=== PATIENT | female | born 1960 | race Caucasian/White ===

== ENCOUNTER 2020-04-13 08:49 | Outpatient (REF) | payer MEDICAID, SELFPAY ==
[2020-04-13 11:33] LABS: Alanine Aminotransferase 28 U/L (0-31); Albumin Level 4.3 g/dL (3.5-5.0); Alkaline Phosphatase 115 U/L (39-117); Anion Gap 12 (12-20); Aspartate Amino Transferase 20 U/L (5-31); Bilirubin Total 0.3 mg/dL (0.0-1.0); Blood Urea Nitrogen 11 mg/dL (9-16); Calcium 9.4 mg/dL (8.4-10.2); Carbon Dioxide 28 mmol/L (22-29); Chloride 107 mmol/L (96-108); Estimated Glomerular Filt Rate > 60; Glucose Fasting 107 mg/dL (60-99); Potassium 4.7 mmol/l (3.3-5.1); Sodium 142 mmol/L (135-145); Total Protein 6.8 g/dL (6.5-8.0)
[2020-04-14 17:57] LABS: Immunoglobulin A 90 mg/dL (47-310)
[2020-04-15 13:11] LABS: Transglutaminase Ab IgG 1 U/mL; Transglutaminase IgA 1 U/mL
[2020-04-15 16:37] LABS: Calcium (PTHI) 9.3 mg/dL (8.6-10.4); PTHI 72 pg/mL (14-64)
[2020-04-17 18:51] LABS: Endomysial IgA Antibody Negative (Negative)
== END 2020-04-13 08:50 | disposition home or self-care (01) ==
LOC: HO.10HDL 08:49
PROVIDERS: Visit Provider Internal Medicine Endocrinology, Diabetes & Metabolism
DX: E21.3 Hyperparathyroidism, unspecified (principal)
CPT/HCPCS: 36415; 80053; 81382; 82306; 82784; 83516; 83970; 86255; 86256

== ENCOUNTER 2020-04-14 11:46 | Outpatient (REF) | payer MEDICAID, SELFPAY ==
[2020-04-14 12:50] LABS: Total Volume 24 Hour Urine 2775 mL
[2020-04-14 12:59] LABS: Creatinine, 24Hr Urine 1.1 G/Day (1.0-2.0); Creatinine, mg/dL 38.02
[2020-04-16 18:01] LABS: Calcium, 24 Hr Urine 114 mg/24 h; Calcium/Creatinine Ratio 105 mg/g creat (30-275); Creatinine 24Hr Urine 1.08 g/24 h (0.50-2.15)
== END 2020-04-14 11:47 | disposition home or self-care (01) ==
LOC: HO.LNP 11:46
PROVIDERS: Visit Provider Internal Medicine Endocrinology, Diabetes & Metabolism
DX: E21.3 Hyperparathyroidism, unspecified (principal)
CPT/HCPCS: 82340; 82570

== ENCOUNTER 2020-04-28 08:58 | Outpatient (REF) | payer MEDICAID, SELFPAY ==
[2020-04-28 10:15] LABS: Alanine Aminotransferase 28 U/L (0-31); Albumin Level 4.3 g/dL (3.5-5.0); Alkaline Phosphatase 108 U/L (39-117); Anion Gap 12 (12-20); Aspartate Amino Transferase 23 U/L (5-31); Bilirubin Total 0.7 mg/dL (0.0-1.0); Blood Urea Nitrogen 13 mg/dL (9-16); Calcium 8.7 mg/dL (8.4-10.2); Carbon Dioxide 29 mmol/L (22-29); Chloride 105 mmol/L (96-108); Estimated Glomerular Filt Rate > 60; Glucose Fasting 106 mg/dL (60-99); Potassium 4.4 mmol/l (3.3-5.1); Sodium 142 mmol/L (135-145); Total Protein 6.8 g/dL (6.5-8.0)
[2020-04-28 10:22] LABS: Vitamin D 25-OH Total 27.2 ng/mL (>30)
[2020-04-29 17:52] LABS: Calcium (PTHI) 9.5 mg/dL (8.6-10.4); PTHI 78 pg/mL (14-64)
[2020-05-02 00:52] LABS: VITAMIN D (1,25 OH) D3 70 pg/mL; Vit D (1,25-Dihydroxy) Total 70 pg/mL (18-72); Vitamin D (1,25 OH) D2 <8 pg/mL
[2020-05-05 14:17] LABS: N-Telopeptide 41 (see note); NTXCreaRU 138 mg/dL (20-275)
== END 2020-04-28 08:59 | disposition home or self-care (01) ==
LOC: HO.LAB 08:58
PROVIDERS: PCP Internal Medicine; Visit Provider Internal Medicine Endocrinology, Diabetes & Metabolism
DX: E83.52 Hypercalcemia (principal)
CPT/HCPCS: 80053; 82306; 82523; 82652; 83970

== ENCOUNTER → 2020-05-04 08:59 | Outpatient (BNVA) | payer MEDICAID, SELFPAY | PROVIDERS: PCP Internal Medicine; Referring Provider Internal Medicine; Visit Provider Internal Medicine Endocrinology, Diabetes & Metabolism | DX: Z13.89 Encounter for screening for other disorder (principal) | CPT/HCPCS: 99212 ==

== ENCOUNTER → 2020-06-16 10:36 | Outpatient (BNVA) | payer MEDICAID, SELFPAY | PROVIDERS: PCP Internal Medicine; Referring Provider Internal Medicine; Visit Provider Student in an Organized Health Care Education/Training Program | DX: Z76.89 Persons encountering health services in other specified circumstances (principal) ==

== ENCOUNTER 2020-08-04 12:41 | Outpatient (REF) | payer MEDICAID, SELFPAY ==
[2020-08-04 14:38] LABS: Alanine Aminotransferase 47 U/L (0-31); Albumin Level 4.3 g/dL (3.5-5.0); Alkaline Phosphatase 231 U/L (39-117); Anion Gap 13 (12-20); Aspartate Amino Transferase 32 U/L (5-31); Bilirubin Total 0.4 mg/dL (0.0-1.0); Blood Urea Nitrogen 14 mg/dL (9-16); Calcium 9.4 mg/dL (8.4-10.2); Carbon Dioxide 29 mmol/L (22-29); Chloride 106 mmol/L (96-108); Estimated Glomerular Filt Rate > 60; Glucose Fasting 116 mg/dL (60-99); Potassium 4.5 mmol/L (3.3-5.1); Sodium 143 mmol/L (135-145); Total Protein 7.3 g/dL (6.5-8.0)
[2020-08-04 15:02] LABS: Vitamin D 25-OH Total 43.5 ng/mL (>30)
[2020-08-05 10:42] LABS: Calcium (PTHI) 9.6 mg/dL (8.6-10.4); PTHI 62 pg/mL (14-64)
== END 2020-08-04 12:42 | disposition home or self-care (01) ==
LOC: HO.LAB 12:41
PROVIDERS: PCP Internal Medicine; Referring Provider Internal Medicine; Visit Provider Internal Medicine Endocrinology, Diabetes & Metabolism
DX: E21.3 Hyperparathyroidism, unspecified (principal); M85.80 Other specified disorders of bone density and structure, unspecified site; Z79.899 Other long term (current) drug therapy
CPT/HCPCS: 36415; 80053; 82306; 83970; 99212

== ENCOUNTER 2020-09-10 07:57 | Outpatient (REF) | payer MEDICAID, SELFPAY ==
[2020-09-10 11:07] LABS: Erythrocyte Sedimentation Rate 48 MM/HR (0-20)
[2020-09-10 11:31] LABS: C Reactive Protein 0.95 mg/dL (< or = 0.50)
== END 2020-09-10 07:58 | disposition home or self-care (01) ==
LOC: HO.10HDL 07:57
PROVIDERS: Visit Provider Student in an Organized Health Care Education/Training Program
DX: M35.3 Polymyalgia rheumatica (principal)
CPT/HCPCS: 36415; 85652; 86140

== ENCOUNTER 2020-09-14 08:41 | Outpatient (REF) | payer MEDICAID, SELFPAY ==
[2020-09-14 13:39] LABS: MANUAL DIFF FLAG NO
[2020-09-14 13:55] LABS: Basophils Percent Auto 0.3 % (0-2); Eosinophils Absolute Auto 0.3 X10*3/uL (0.0-0.4); Eosinophils Percent Auto 3.8 % (0-4); Hematocrit 42.3 % (37-47); Hemoglobin 13.3 g/dl (12.0-16.0); Imm Gran Abs Auto 0.02 X10*3/uL (0.00-0.03); Imm Gran Pct Auto 0.3 % (0.0-0.4); Lymphocytes Absolute Auto 1.5 X10*3/uL (1.2-4.9); Lymphocytes Percent Auto 19.9 % (20-40); Mean Corpuscular HGB Conc 31.4 g/dl (31.0-35.0); Mean Corpuscular Hemoglobin 28.4 pg (27.0-33.0); Mean Corpuscular Volume 90.2 fL (80-98); Mean Platelet Volume 12.4 fL (9.4-12.3); Monocytes Absolute Auto 0.6 X10*3/uL (0.1-1.2); Monocytes Percent Auto 7.2 % (2-11); Neutrophils Absolute Auto 5.3 X10*3/uL (2.0-8.3); Neutrophils Percent Auto 68.5 % (45-73); Platelet Count 263 X10*3/uL (160-400); Red Blood Count 4.69 X10*6/uL (4.20-5.50); White Blood Count 7.7 X10*3/uL (4.8-10.8)
[2020-09-14 14:25] LABS: Alanine Aminotransferase 59 U/L (0-31); Albumin Level 4.4 g/dL (3.5-5.0); Alkaline Phosphatase 280 U/L (39-117); Anion Gap 16 (12-20); Aspartate Amino Transferase 47 U/L (5-31); Bilirubin Direct 0.3 mg/dL (0.0-0.5); Bilirubin Total 0.6 mg/dL (0.0-1.0); Blood Urea Nitrogen 16 mg/dL (9-16); Calcium 9.4 mg/dL (8.4-10.2); Carbon Dioxide 27 mmol/L (22-29); Chloride 104 mmol/L (96-108); Estimated Glomerular Filt Rate > 60; Glucose Random 79 mg/dL (60-115); Potassium 4.3 mmol/L (3.3-5.1); Sodium 143 mmol/L (135-145); Total Protein 7.7 g/dL (6.5-8.0)
[2020-09-14 14:31] LABS: Gamma Glutamyl Transpeptidase 353 U/L (7-33)
[2020-09-16 14:16] LABS: IgA 102 mg/dL (47-310); IgG 795 mg/dL (600-1640); IgM 389 mg/dL (50-300)
[2020-09-17 22:36] LABS: Alk.Phos Iso. Macrohepatic 19 % (<=0); Alk.Phos Isoenzymes Bone 16 % (28-66); Alk.Phos Isoenzymes Intest 0 % (1-24); Alk.Phos Isoenzymes Liver 65 % (25-69); Alk.Phos Isoenzymes Placental 0 % (<=0); Alk.Phos Isoenzymes Total 254 U/L (37-153)
== END 2020-09-14 08:42 | disposition home or self-care (01) ==
LOC: HO.10HDL 08:41
PROVIDERS: Absent Provider Internal Medicine Medical Oncology; Visit Provider Internal Medicine Endocrinology, Diabetes & Metabolism
DX: D80.1 Nonfamilial hypogammaglobulinemia (principal); R74.8 Abnormal levels of other serum enzymes
CPT/HCPCS: 36415; 80053; 80076; 82248; 82784; 82977; 84080; 85025; 86334

== ENCOUNTER 2020-10-14 08:49 | Outpatient (REF) | payer MEDICAID, SELFPAY ==
[2020-10-14 10:43] LABS: C Reactive Protein 1.64 mg/dL (< or = 0.50)
[2020-10-14 11:19] LABS: Erythrocyte Sedimentation Rate 39 MM/HR (0-20)
== END 2020-10-14 08:50 | disposition home or self-care (01) ==
LOC: HO.10HDL 08:49
PROVIDERS: Visit Provider Student in an Organized Health Care Education/Training Program
DX: M35.3 Polymyalgia rheumatica (principal)
CPT/HCPCS: 36415; 85652; 86140

== ENCOUNTER → 2020-10-16 14:49 | Outpatient (BNVA) | payer MEDICAID, SELFPAY | PROVIDERS: PCP Internal Medicine; Visit Provider Student in an Organized Health Care Education/Training Program | DX: M35.3 Polymyalgia rheumatica (principal); R79.82 Elevated C-reactive protein (CRP) | CPT/HCPCS: 99212 ==

== ENCOUNTER 2020-11-10 08:27 | Outpatient (REF) | payer MEDICAID, SELFPAY ==
[2020-11-10 09:42] LABS: MANUAL DIFF FLAG NO
[2020-11-10 09:49] LABS: Basophils Percent Auto 0.4 % (0-2); Eosinophils Absolute Auto 0.2 X10*3/uL (0.0-0.4); Eosinophils Percent Auto 3.3 % (0-4); Hematocrit 40.3 % (37-47); Imm Gran Abs Auto 0.01 X10*3/uL (0.00-0.03); Imm Gran Pct Auto 0.2 % (0.0-0.4); Lymphocytes Absolute Auto 1.4 X10*3/uL (1.2-4.9); Lymphocytes Percent Auto 28.8 % (20-40); Mean Corpuscular HGB Conc 32.3 g/dl (31.0-35.0); Mean Corpuscular Hemoglobin 29.1 pg (27.0-33.0); Mean Corpuscular Volume 90.2 fL (80-98); Mean Platelet Volume 10.3 fL (9.4-12.3); Monocytes Absolute Auto 0.5 X10*3/uL (0.1-1.2); Monocytes Percent Auto 9.6 % (2-11); Neutrophils Absolute Auto 2.8 X10*3/uL (2.0-8.3); Neutrophils Percent Auto 57.7 % (45-73); Platelet Count 195 X10*3/uL (160-400); Red Blood Count 4.47 X10*6/uL (4.20-5.50); White Blood Count 4.8 X10*3/uL (4.8-10.8)
[2020-11-10 09:55] LABS: Prothrombin Time 12.2 SEC (10.8-13.0)
[2020-11-10 10:19] LABS: Alanine Aminotransferase 49 U/L (0-31); Albumin Level 4.6 g/dL (3.5-5.0); Alkaline Phosphatase 194 U/L (39-117); Anion Gap 14 (12-20); Aspartate Amino Transferase 39 U/L (5-31); Bilirubin Total 0.6 mg/dL (0.0-1.0); Blood Urea Nitrogen 12 mg/dL (9-16); C Reactive Protein 2.28 mg/dL (< or = 0.50); Calcium 9.8 mg/dL (8.4-10.2); Carbon Dioxide 25 mmol/L (22-29); Chloride 106 mmol/L (96-108); Estimated Glomerular Filt Rate > 60; Glucose Random 119 mg/dL (60-115); Iron 79 mcg/dL (30-160); Percent Iron Saturation 19 % (15-50); Potassium 3.8 mmol/L (3.3-5.1); Sodium 141 mmol/L (135-145); Total Iron Binding Capacity 421 mcg/dL (228-428); Total Protein 7.5 g/dL (6.5-8.0); Unsaturated Iron Binding 342 ug/dL
[2020-11-10 10:39] LABS: HBS Num1 8.65 mIU/mL (0-7.99); Hepatitis B Core Antibody Nonreactive (Nonreactive)
[2020-11-10 10:42] LABS: Ferritin 101 ng/mL (10-250)
[2020-11-10 10:43] LABS: Erythrocyte Sedimentation Rate 38 MM/HR (0-20)
[2020-11-10 10:44] LABS: Hepatitis A Antibody IgM 0.72 Index (0-0.79); Hepatitis B Surface Antigen Negative (Negative); ~HepC Num1 0.07 S/CO (0.00-0.79); ~Hepatitis A Antibody IgM Nonreactive (Nonreactive); ~Hepatitis C Antibody Nonreactive (Nonreactive)
[2020-11-10 11:46] LABS: HBsAGNum1 0.15 S/CO (0.00-0.99)
[2020-11-10 13:44] LABS: HBS Num2 8.05 mIU/mL (0-7.99); HBS Num3 8.09 mIU/mL (0-7.99); ~Hepatitis B Surface Antibody GRAYZONE (Nonreactive)
[2020-11-11 11:42] LABS: Alpha 1 Anti-trypsin 203 mg/dL (83-199)
[2020-11-11 23:27] LABS: Immunoglobulin G Subclass 1 464 mg/dL (382-929); Immunoglobulin G Subclass 2 231 mg/dL (241-700); Immunoglobulin G Subclass 3 90 mg/dL (22-178); Immunoglobulin G Subclass 4 14.4 mg/dL (4-86); Immunoglobulin G Total 743 mg/dL (600-1640)
[2020-11-12 13:32] LABS: Anti Nuclear Antibody Screen NEGATIVE (NEGATIVE)
[2020-11-13 10:57] LABS: Soluble Liver Ag Autoantibody <20.1 U (0.0-20.0)
[2020-11-13 11:21] LABS: Myeloperoxidase Antibody <1.0 AI; Proteinase 3 PR3 Antibodies <1.0 AI
[2020-11-13 23:06] LABS: Smooth Muscle Antibody <20 U (<20)
[2020-11-16 15:11] LABS: Mitochondrial Antibodies POSITIVE (NEGATIVE)
[2020-11-17 23:26] LABS: Histamine Plasma <1.5 ng/mL (< OR = 1.8)
== END 2020-11-10 08:28 | disposition home or self-care (01) ==
LOC: HO.LAB 08:27
PROVIDERS: Student in an Organized Health Care Education/Training Program; PCP Internal Medicine; Visit Provider Internal Medicine Gastroenterology
DX: M35.3 Polymyalgia rheumatica (principal); K52.839 Microscopic colitis, unspecified; K75.81 Nonalcoholic steatohepatitis (NASH); R74.8 Abnormal levels of other serum enzymes; R79.82 Elevated C-reactive protein (CRP); R68.81 Early satiety
CPT/HCPCS: 36415; 80053; 82085; 82103; 82728; 82784; 83088; 83520; 83540; 85025; 85610; 85652; 86021; 86038; 86039; 86140; 86255; 86256; 86704; 86706; 86709; 86803; 87340; 99202

== ENCOUNTER 2020-11-26 09:27 | Outpatient (REF) | payer MEDICAID, SELFPAY ==
--- NOTE | ~2020-11-26 | US_ITS ---
EXAMINATION: US COMPLETE ABDOMEN WITH LIVER ELASTOGRAPHY CLINICAL INFORMATION: Abnormal serum levels. COMPARISON: None. TECHNIQUE: Real-time imaging of the abdominal viscera. Noninvasive ultrasound liver fibrosis assessment is performed using [employer] ElastPQ point quantification shear wave elastography (pSWE) with a C5-2 MHz transducer. Multiple elastography samples are obtained. FINDINGS: LIVER: Homogeneous echotexture without focal abnormality. The right lobe measures 15.6 cm in length. The left lobe measures 12.2 cm in length. Portal flow is hepatopedal. Shear wave liver elastography median stiffness is 1.39 m/s (reference: normal median stiffness is 1.3 m/s or less). IQR/median stiffness to assess sampling precision is 0.2 (reference: good quality data set is IQR/median stiffness of 0.15 or less). PANCREAS: Visualized portions unremarkable. ABDOMINAL AORTA: Visualized portions unremarkable. INFERIOR VENA CAVA: Visualized portions are normal. GALLBLADDER: Unremarkable. COMMON BILE DUCT: Normal in caliber measuring 0.4 cm in diameter. RIGHT KIDNEY: 10.3 cm. Unremarkable. LEFT KIDNEY: 10.6 cm. A cortically based echogenic focus in the lower pole measures 0.6 cm. SPLEEN: 11.0 cm. Unremarkable. FREE FLUID: None. US/US abdomen comp w elastography IMPRESSION: 1. Cortically based echogenic focus in the lower pole the left kidney is nonspecific, but could represent a small angiomyolipoma. No other significant intra-abdominal abnormality. 2. Liver elastography: Borderline normal/compensated advanced chronic liver disease rule out. REFERENCE: Society of Radiologists in Ultrasound Liver Stiffness Thresholds (2020): LIVER STIFFNESS THRESHOLDS: *Liver Stiffness equal or less than 1.3 m/s: High probability of being normal. *Liver Stiffness less than 1.7 m/s: In the absence of other known clinical signs, rules out compensated advanced chronic liver disease. *Liver Stiffness 1.7-2.1 m/s: Suggestive of compensated advanced chronic liver disease but need further test for confirmation. *Liver Stiffness over 2.1 m/s: Rules in compensated advanced chronic liver disease. *Liver Stiffness over 2.4 m/s: Suggestive of clinically significant portal hypertension. QUALITY OF DATA SET: *IQR/Median value equal or less than 0.15 implies a quality data set. *IQR/Median value over 0.15 implies a poor quality data set. SIGNIFICANT CHANGE FROM PRIOR EXAM: Significant change if liver stiffness measurement is 10% or greater from prior exam. OTHER CONSIDERATIONS: The stage of liver fibrosis may be overestimated in the setting of acute hepatitis, liver inflammation, elevated liver function tests, hepatic vascular congestion, obstructive cholestasis, non-fasting state, and infiltrative diseases such as amyloidosis and lymphoma. In some patients with NAFLD, the liver stiffness thresholds for compensated advanced chronic liver disease may be lower. In causes other than viral hepatitis and NAFLD, liver stiffness thresholds are not well established.
== END 2020-11-26 09:28 | disposition home or self-care (01) ==
LOC: HO.US 09:27
PROVIDERS: Visit Provider Internal Medicine Gastroenterology
DX: R74.8 Abnormal levels of other serum enzymes (principal); R79.82 Elevated C-reactive protein (CRP); R68.81 Early satiety
CPT/HCPCS: 76705; 76981

== ENCOUNTER → 2020-12-03 13:26 | Outpatient (BNVA) | payer MEDICAID, SELFPAY | PROVIDERS: PCP Internal Medicine; Visit Provider Internal Medicine Endocrinology, Diabetes & Metabolism ==

== ENCOUNTER 2020-12-17 11:56 | Day surgery (SDC) | payer MEDICAID, SELFPAY ==
[2020-12-09 19:21] VITALS: BMI 31.1
--- NOTE | 2020-12-16 09:42 | HO.ANESPROP2 ---
Documented by User: Brea Barthney 12/16/20 09:46 HPI - Anesthesia Eval Consult details Narrative: 60yo F for Upper Endoscopy PMR - no prednisone since 2019 PMFSH Active Problems Active Problems: All Active Problems (Updated 12/09/20 @ 19:23 by Kait Flowers RN) Hypogammaglobulinemia (Acute) Elevated C-reactive protein (CRP) (Acute) Early satiety (Acute) Elevated alkaline phosphatase level (Acute) Dyslipidemia (Acute) Asthma (Acute) Polymyalgia rheumatica (Acute) Depression (Acute) Osteopenia (Acute) Hyperparathyroidism (Acute) Past Medical History Medical History Arthritis Asthma Back pain COVID-19 vaccine administered Depression Dyslipidemia Elevated alkaline phosphatase level GERD (gastroesophageal reflux disease) Hyperparathyroidism Osteopenia Polymyalgia rheumatica Family History Family History Father Diabetes Mother No problems noted. Surgical History Surgical History History of partial hysterectomy Hx of colonoscopy Hx of esophagogastroduodenoscopy Hx of hemorrhoidectomy Hx of melanoma excision Social History Social History Household Members: Spouse Alcohol intake: never Patient Tobacco Use Status: Never used Tobacco Use of substances other than those prescribed or required for medical reasons: No Are you DNR?: No Advance Directives: No Advance Directives Information Provided: No Advance Directives on File: No Recently lost weight without trying: No Meds Allergies Allergy/AdvReac Type Severity Reaction Status Date / Time penicillin G [PENICILLIN G] Allergy Intermediate UNKNOWN Verified 12/17/20 12:37 Home Medications Medication Instructions Recorded Confirmed Last Taken Type albuterol sulfate 90 mcg/actuation 1 inh INHALATION QID 05/04/20 12/09/20 12/17/20 11:00 History aerosol inhaler bupropion HCl 150 mg 24 hr tablet, 150 mg PO QAM 05/04/20 12/09/20 Unknown History extended release cetirizine 10 mg tablet 10 mg PO DAILY 05/04/20 12/09/20 Unknown History estradiol 1 vag ring VAGINAL [id number] 05/04/20 12/09/20 Unknown History fluticasone propionate 50 1 spray INTRANASAL DAILY 05/04/20 12/09/20 12/17/20 11:00 History mcg/actuation nasal spray,suspension methenamine hippurate 1 gram tablet 1 g PO BID 05/04/20 12/09/20 Unknown History pantoprazole 20 mg tablet,delayed 20 mg PO DAILY 06/16/20 12/09/20 Unknown History release celecoxib 50 mg capsule 100 mg PO DAILY cap 10/16/20 12/09/20 Unknown History simvastatin 10 mg tablet 20 mg PO DAILY tab 10/16/20 12/09/20 Unknown History Exam Exam Date and Time: December 16, 2020 0942 Height,Weight and Vital Signs: Height 5 ft 2 in Weight 77.111 kg Pertinent Lab Results Pertinent Lab Results: Laboratory Tests 11/10/20 11/10/20 09:31 09:31 WBC 4.8 Hgb 13.0 Hct 40.3 Plt Count 195 D Sodium 141 Potassium 3.8 Chloride 106 Carbon Dioxide 25 BUN 12 Creatinine 0.74 Assessment and Plan Assessment Anesthesia Assessment: Chart Reviewed Documented by User: Christal Weems 12/17/20 13:47 PMFSH Past Medical History Medical History Arthritis Asthma Back pain COVID-19 vaccine administered Depression Dyslipidemia Elevated alkaline phosphatase level GERD (gastroesophageal reflux disease) Hyperparathyroidism Osteopenia Polymyalgia rheumatica Family History Family History Father Diabetes Mother No problems noted. Family history of problems with anesthesia: No Surgical History Surgical History History of partial hysterectomy Hx of colonoscopy Hx of esophagogastroduodenoscopy Hx of hemorrhoidectomy Hx of melanoma excision History of Problems with Anesthesia: No Social History Social History Household Members: Spouse Alcohol intake: never Patient Tobacco Use Status: Never used Tobacco Use of substances other than those prescribed or required for medical reasons: No Are you DNR?: No Advance Directives: No Advance Directives Information Provided: No Advance Directives on File: No Recently lost weight without trying: No Meds Allergies Allergy/AdvReac Type Severity Reaction Status Date / Time penicillin G [PENICILLIN G] Allergy Intermediate UNKNOWN Verified 12/17/20 12:37 Home Medications Medication Instructions Recorded Confirmed Last Taken Type albuterol sulfate 90 mcg/actuation 1 inh INHALATION QID 05/04/20 12/09/20 12/17/20 11:00 History aerosol inhaler bupropion HCl 150 mg 24 hr tablet, 150 mg PO QAM 05/04/20 12/09/20 Unknown History extended release cetirizine 10 mg tablet 10 mg PO DAILY 05/04/20 12/09/20 Unknown History estradiol 1 vag ring VAGINAL [id number] 05/04/20 12/09/20 Unknown History fluticasone propionate 50 1 spray INTRANASAL DAILY 05/04/20 12/09/20 12/17/20 11:00 History mcg/actuation nasal spray,suspension methenamine hippurate 1 gram tablet 1 g PO BID 05/04/20 12/09/20 Unknown History pantoprazole 20 mg tablet,delayed 20 mg PO DAILY 06/16/20 12/09/20 Unknown History release celecoxib 50 mg capsule 100 mg PO DAILY cap 10/16/20 12/09/20 Unknown History simvastatin 10 mg tablet 20 mg PO DAILY tab 10/16/20 12/09/20 Unknown History Exam Height,Weight and Vital Signs: Vital Signs Temp Pulse Resp BP Pulse Ox 12/17/20 12:38 98.1 F 58 15 131/71 97 Airway Mallampati Class: II TM Dist: >3cm Neck ROM: Full Heart: RRR Lungs: CTAB Assessment and Plan Assessment Anesthesia Assessment: Anesthesia Plan Discussed and Chart Reviewed Final Anesthetic Review NPO: Yes ASA Class: II Final Preanesthetic Review: No Changes in Pt Med Stat, Meds/Allgs Chart Reviewed and Consent Obtained/Reviewed Patient Risk: Low Procedure Risk: Low Assessment/Block/Sedation in SS: Assess/Block/Sedation-SS Anesthetic Plan Anesthetic Plan: MAC: Disposition: Standard PACU
--- NOTE | 2020-12-17 12:32 | MHC.SHP ---
Pre-Procedural Eval Section A Date of Service: 12/17/20 Section B Chief Complaint: early satiety Relevant Family History (Specify if Yes): No Relevant Social History: None Present Medications: see Short Stay Collaborative assessment Medical History: Significant History (Arthritis Asthma Back pain COVID-19 vaccine administered Depression Dyslipidemia Elevated alkaline phosphatase level GERD (gastroesophageal reflux disease) Hyperparathyroidism Osteopenia Polymyalgia rheumatica) History of Previous Operations: Relevant previous surgery/procedure and date(s) (History of partial hysterectomy Hx of colonoscopy Hx of esophagogastroduodenoscopy Hx of hemorrhoidectomy Hx of melanoma excision) Allergies: Allergies Allergy/AdvReac Type Severity Reaction Status Date / Time penicillin G [PENICILLIN G] Allergy Intermediate UNKNOWN Verified 12/09/20 19:20 Review of Systems Sugical H&P ROS: Negative: Constitution, Cardiovascular, Respiratory, Neurological, Psychiatric, Hem-Onc, Allergic/Immunologic, Gastrointestinal, Genitourinary, Musculoskeletal, Integumentary, Endocrine and Eyes/Ears/Nose/Throat Exam Surgical H&P Exam: Normal: HEENT, Normal: Heart, Normal: Lungs, Normal: Extremities, Normal: Abdomen, Normal: Skin and Normal: Neurological Plan Diagnosis/Plan: Unchanged I have reviewed the history and physical and performed a pertinent physical examination on my patient. No changes have occurred unless specified.
[2020-12-17 12:38] VITALS: BP 131/71; PULSE 58; RESP 15; TEMP 36.7; O2SAT 97
[2020-12-17] MEDS: Lactated Ringers 1,000 ML 100 ML IVCONT (13:00)
--- NOTE | 2020-12-17 13:09 | PM.OP ---
Brief Operative Note Date of Service: 12/17/20 Pre-op diagnosis: satiety, PBC Post-op diagnosis: same Procedure: see op note Surgeon: Geraldo Fung MD Anesthesia: MAC Was an Tufting Supervisor used for this Procedure?: No Estimated blood loss (mL): 0 Condition: stable Disposition: PACU
--- NOTE | 2020-12-17 13:10 | W.PM.OPN ---
Operative Note Operative Note Date of Service: 12/17/20 Narrative: Procedure Description: EGD FLEXIBLE TRANSORAL UPPER GASTROINTESTINAL ENDOSCOPY UPPER ENDOSCOPY Consent: Indications for the procedure and potential complications of bleeding, perforation, reaction to medications and missed diagnosis were discussed with the patient and informed consent was obtained. Instrument: Olympus GIF H 190 J mid size upper endoscope Monitoring: Vital signs and clinical assessment, continuous EKG monitoring, Pulse oximetry, Carbon Dioxide monitoring and blood pressure monitoring were done throughout the procedure. Procedure: The patient was placed in the left lateral decubitis position and pre-procedure medications were administered and a bite block was placed. The endoscope was inserted into the mouth and advanced under direct vision to the third part of duodenum. A careful inspection was made as the upper endoscope was withdrawn including a retroflexed examination of the proximal stomach; Findings and interventions are described below. Findings: Larynx:normal Esophagus: GE junction at 38 cm, diaphragm hiatus at 38 cm, irregular Z line with suspected short segment barretts, bx taken Stomach: Patchy gastric erythema. Biopsies were obtained. Grade 2 flap valve on retroflexed examination of the cardia. 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
[2020-12-17 13:49] VITALS: BP 107/56; PULSE 53; RESP 16; TEMP 36.4; O2SAT 96
[2020-12-17 13:54] VITALS: BP 109/64; PULSE 57; RESP 15; O2SAT 94
[2020-12-17 14:04] VITALS: BP 114/63; PULSE 53; RESP 13; O2SAT 96
[2020-12-17 14:24] VITALS: BP 129/64; PULSE 53; RESP 13; TEMP 36.3; O2SAT 97
== END 2020-12-17 15:16 | disposition home or self-care (01) ==
PROVIDERS: PCP Internal Medicine; Visit Provider Internal Medicine Gastroenterology
PROC: 0DJ08ZZ Inspection of Upper Intestinal Tract, Via Natural or Artificial Opening Endoscopic (ICD-10-PCS; CPT 43235; principal; 2020-12-17 13:30)
DX: R68.81 Early satiety (principal); R74.8 Abnormal levels of other serum enzymes; R79.82 Elevated C-reactive protein (CRP); K29.50 Unspecified chronic gastritis without bleeding; K21.9 Gastro-esophageal reflux disease without esophagitis; K44.9 Diaphragmatic hernia without obstruction or gangrene; M35.3 Polymyalgia rheumatica; J45.909 Unspecified asthma, uncomplicated; Z79.899 Other long term (current) drug therapy; Z79.51 Long term (current) use of inhaled steroids; Z88.0 Allergy status to penicillin; Z85.820 Personal history of malignant melanoma of skin
CPT/HCPCS: 43239; 88305; 88342; J3010

== ENCOUNTER → 2021-01-05 13:46 | Outpatient (BNVA) | payer MEDICAID, SELFPAY | PROVIDERS: PCP Internal Medicine; Visit Provider Internal Medicine Gastroenterology ==

== ENCOUNTER 2021-05-18 07:49 | Outpatient (REF) | payer MEDICAID, SELFPAY ==
[2021-05-18 09:16] LABS: MANUAL DIFF FLAG NO
[2021-05-18 09:46] LABS: Basophils Percent Auto 0.3 % (0-2); Eosinophils Absolute Auto 0.1 X10*3/uL (0.0-0.4); Eosinophils Percent Auto 1.1 % (0-4); Hematocrit 41.8 % (37.0-47.0); Hemoglobin 13.4 g/dl (12.0-16.0); Imm Gran Abs Auto 0.02 X10*3/uL (0.00-0.03); Imm Gran Pct Auto 0.3 % (0.0-0.4); Lymphocytes Absolute Auto 2.7 X10*3/uL (1.2-4.9); Lymphocytes Percent Auto 35.8 % (20-40); Mean Corpuscular HGB Conc 32.1 g/dl (31.0-35.0); Mean Corpuscular Hemoglobin 29.5 pg (27.0-33.0); Mean Corpuscular Volume 91.9 fL (80.0-98.0); Monocytes Absolute Auto 0.5 X10*3/uL (0.1-1.2); Monocytes Percent Auto 6.6 % (2-11); Neutrophils Absolute Auto 4.3 x10*3/uL (2.0-8.3); Neutrophils Percent Auto 55.9 % (45-73); Platelet Count 214 X10*3/uL (160-400); Red Blood Count 4.55 X10*6/uL (4.20-5.50); Red Cell Distribution Width 13.4 % (11.0-16.0); White Blood Count 7.6 X10*3/uL (4.8-10.8)
[2021-05-18 10:17] LABS: Alanine Aminotransferase 17 U/L (0-31); Albumin Level 4.4 g/dL (3.5-5.0); Alkaline Phosphatase 106 U/L (39-117); Anion Gap 12 (12-20); Aspartate Amino Transferase 13 U/L (5-31); Bilirubin Total 0.4 mg/dL (0.0-1.0); Blood Urea Nitrogen 15 mg/dL (9-16); C Reactive Protein 0.25 mg/dL (< or = 0.50); Calcium 9.6 mg/dL (8.4-10.2); Carbon Dioxide 27 mmol/L (22-29); Chloride 108 mmol/L (96-108); Estimated Glomerular Filt Rate > 60; Glucose Random 95 mg/dL (60-115); Potassium 4.4 mmol/L (3.3-5.1); Sodium 143 mmol/L (135-145); Total Protein 6.9 g/dL (6.5-8.0)
[2021-05-18 10:33] LABS: Erythrocyte Sedimentation Rate 23 MM/HR (0-20)
== END 2021-05-18 07:50 | disposition home or self-care (01) ==
LOC: HO.LAB 07:49
PROVIDERS: PCP Internal Medicine; Visit Provider Nurse Practitioner Family
DX: M35.3 Polymyalgia rheumatica (principal); R79.82 Elevated C-reactive protein (CRP)
CPT/HCPCS: 36415; 80053; 85025; 85652; 86140; 99212

== ENCOUNTER 2021-06-15 09:25 | Outpatient (REF) | payer MEDICAID, SELFPAY ==
[2021-06-15 11:05] LABS: Erythrocyte Sedimentation Rate 26 MM/HR (0-20)
[2021-06-15 11:17] LABS: Alanine Aminotransferase 18 U/L (0-31); Albumin Level 4.3 g/dL (3.5-5.0); Alkaline Phosphatase 96 U/L (39-117); Anion Gap 13 (12-20); Aspartate Amino Transferase 17 U/L (5-31); Bilirubin Total 0.5 mg/dL (0.0-1.0); Blood Urea Nitrogen 14 mg/dL (9-16); C Reactive Protein 0.43 mg/dL (< or = 0.50); Calcium 10.5 mg/dL (8.4-10.2); Carbon Dioxide 28 mmol/L (22-29); Chloride 107 mmol/L (96-108); Estimated Glomerular Filt Rate > 60; Glucose Random 100 mg/dL (60-115); Potassium 4.8 mmol/L (3.3-5.1); Sodium 143 mmol/L (135-145); Total Protein 7.1 g/dL (6.5-8.0)
[2021-06-21 06:02] LABS: Vitamin B6 7.6 ng/mL (2.1-21.7)
[2021-06-21 16:56] LABS: Alpha-Tocopherol 19.6 mg/L (5.7-19.9); Beta-Gamma Tocopherol <1.0 mg/L (<=4.3)
[2021-06-22 15:06] LABS: Vitamin B5 (Pantothenic Acid) <40 ng/mL (<275)
[2021-06-22 17:31] LABS: Vitamin K1 492 pg/mL (130-1500)
== END 2021-06-15 09:26 | disposition home or self-care (01) ==
LOC: HO.10HDL 09:25
PROVIDERS: Visit Provider Internal Medicine Gastroenterology
DX: K74.3 Primary biliary cirrhosis (principal); R79.82 Elevated C-reactive protein (CRP); R74.8 Abnormal levels of other serum enzymes; R68.81 Early satiety; K75.81 Nonalcoholic steatohepatitis (NASH)
CPT/HCPCS: 36415; 80053; 84207; 84446; 84591; 84597; 85652; 86140

== ENCOUNTER → 2021-06-28 09:05 | Outpatient (BNVA) | payer MEDICAID, SELFPAY | PROVIDERS: PCP Internal Medicine; Visit Provider Internal Medicine Gastroenterology ==

== ENCOUNTER 2021-08-19 11:16 | Outpatient (REF) | payer MEDICAID, SELFPAY ==
--- NOTE | ~2021-08-19 | US_ITS ---
EXAMINATION: US ABDOMEN LIMITED WITH LIVER ELASTOGRAPHY CLINICAL INFORMATION: Abnormal levels of other serum enzymes. COMPARISON: None. TECHNIQUE: Real-time imaging of the abdominal viscera. Noninvasive ultrasound liver fibrosis assessment is performed using [place] ElastPQ point quantification shear wave elastography (2D-SWE) with a C5-2 MHz transducer. Multiple elastography samples are obtained. FINDINGS: PANCREAS: The pancreas is partially obscured by overlying gas. Visualized body and the head of the pancreas is homogeneous in echotexture. LIVER: Normal. The liver demonstrates normal size, contour and echogenicity. No focal lesion or intrahepatic biliary duct dilatation. The right lobe measures 15.2 cm in length. The left lobe measures 10.6 cm in length. Portal flow is hepatopedal. Shear wave liver elastography median stiffness is 1.47 m/s (reference: normal median stiffness is 1.3 m/s or less). IQR/median stiffness to assess sampling precision is 0.30 (reference: good quality data set is IQR/median stiffness of 0.15 or less). GALLBLADDER: Normal. The gallbladder is physiologically distended without evidence of stones, sludge, polyps, wall thickening or pericholecystic fluid. COMMON BILE DUCT: Normal in caliber measuring 0.4 cm in diameter. RIGHT KIDNEY: Normal. No hydronephrosis. No renal calculi or focal parenchymal lesions. The kidney measures 10.2 cm in maximum dimension. FREE FLUID: None. US/US abdomen saucedo w elastography IMPRESSION: 1. Visualized liver, gallbladder, right kidney is unremarkable. Pancreatic head and the body appears unremarkable. 2. Liver elastography: Median liver stiffness measures 1.7 cm corresponding to cACLD (ruled out). REFERENCE: Society of Radiologists in Ultrasound Liver Stiffness Thresholds (2020): LIVER STIFFNESS THRESHOLDS: *Liver Stiffness equal or less than 1.3 m/s: High probability of being normal. *Liver Stiffness less than 1.7 m/s: In the absence of other known clinical signs, rules out compensated advanced chronic liver disease. *Liver Stiffness 1.7-2.1 m/s: Suggestive of compensated advanced chronic liver disease but need further test for confirmation. *Liver Stiffness over 2.1 m/s: Rules in compensated advanced chronic liver disease. *Liver Stiffness over 2.4 m/s: Suggestive of clinically significant portal hypertension. QUALITY OF DATA SET: *IQR/Median value equal or less than 0.15 implies a quality data set. *IQR/Median value over 0.15 implies a poor quality data set. SIGNIFICANT CHANGE FROM PRIOR EXAM: Significant change if liver stiffness measurement is 10% or greater from prior exam. OTHER CONSIDERATIONS: The stage of liver fibrosis may be overestimated in the setting of acute hepatitis, liver inflammation, elevated liver function tests, hepatic vascular congestion, obstructive cholestasis, non-fasting state, and infiltrative diseases such as amyloidosis and lymphoma. In some patients with NAFLD, the liver stiffness thresholds for compensated advanced chronic liver disease may be lower. In causes other than viral hepatitis and NAFLD, liver stiffness thresholds are not well established.
== END 2021-08-19 11:17 | disposition home or self-care (01) ==
LOC: HO.US 11:16
PROVIDERS: Visit Provider Internal Medicine Gastroenterology
DX: R74.8 Abnormal levels of other serum enzymes (principal)
CPT/HCPCS: 76705; 76981

== ENCOUNTER → 2021-11-18 09:53 | Outpatient (BNVA) | payer MEDICAID, SELFPAY | PROVIDERS: PCP Internal Medicine; Visit Provider Nurse Practitioner Family | DX: M35.3 Polymyalgia rheumatica (principal); M79.641 Pain in right hand; M25.552 Pain in left hip; M54.50 Low back pain, unspecified | CPT/HCPCS: 99212 ==

== ENCOUNTER 2022-06-13 09:39 | Outpatient (REF) | payer MEDICAID, SELFPAY ==
[2022-06-13 10:07] LABS: MANUAL DIFF FLAG NO
[2022-06-13 10:29] LABS: Basophils Percent Auto 0.6 % (0-2); Eosinophils Absolute Auto 0.1 X10*3/uL (0.0-0.4); Eosinophils Percent Auto 1.3 % (0-4); Hematocrit 42.9 % (37.0-47.0); Hemoglobin 14.2 g/dl (12.0-16.0); Imm Gran Abs Auto 0.01 X10*3/uL (0.00-0.03); Imm Gran Pct Auto 0.2 % (0.0-0.4); Lymphocytes Absolute Auto 1.8 X10*3/uL (1.2-4.9); Lymphocytes Percent Auto 33.7 % (20-40); Mean Corpuscular HGB Conc 33.1 g/dl (31.0-35.0); Mean Corpuscular Hemoglobin 30.1 pg (27.0-33.0); Mean Corpuscular Volume 91.1 fL (80.0-98.0); Mean Platelet Volume 11.4 fL (9.4-12.3); Monocytes Absolute Auto 0.4 X10*3/uL (0.1-1.2); Neutrophils Percent Auto 56.2 % (45-73); Platelet Count 189 X10*3/uL (160-400); Red Blood Count 4.71 X10*6/uL (4.20-5.50); Red Cell Distribution Width 13.1 % (11.0-16.0); White Blood Count 5.4 X10*3/uL (4.8-10.8)
[2022-06-13 10:36] LABS: Prothrombin Time 11.1 SEC (10.0-13.1)
[2022-06-13 11:19] LABS: Alanine Aminotransferase 26 U/L (0-31); Albumin Level 4.4 g/dL (3.5-5.0); Alkaline Phosphatase 88 U/L (39-117); Anion Gap 13 (12-20); Aspartate Amino Transferase 23 U/L (5-31); Bilirubin Total 0.5 mg/dL (0.0-1.0); Blood Urea Nitrogen 8 mg/dL (9-16); Calcium 9.3 mg/dL (8.4-10.2); Carbon Dioxide 24 mmol/L (22-29); Chloride 108 mmol/L (96-108); Estimated Glomerular Filt Rate > 60; Ferritin 89 ng/mL (10-250); Glucose Random 122 mg/dL (60-115); Iron 119 mcg/dL (30-160); Percent Iron Saturation 33 % (15-50); Potassium 3.8 mmol/L (3.3-5.1); Sodium 141 mmol/L (135-145); Total Iron Binding Capacity 365 mcg/dL (228-428); Total Protein 6.7 g/dL (6.5-8.0); Unsaturated Iron Binding 246 ug/dL
[2022-06-13 11:34] LABS: Folate 10.5 ng/mL (> or = 4.0); Vitamin B12 432 pg/mL (200-900)
[2022-06-17 16:54] LABS: Vitamin C 0.5 mg/dL (0.3-2.7)
[2022-06-17 22:33] LABS: Vitamin A 43 mcg/dL (38-98)
[2022-06-17 23:53] LABS: Alpha-Tocopherol 9.3 mg/L (5.7-19.9); Beta-Gamma Tocopherol <1.0 mg/L (<=4.3)
[2022-06-17 23:53] LABS: Zinc 66 mcg/dL (60-130)
[2022-06-18 10:13] LABS: Vitamin B1 19 nmol/L (8-30)
[2022-06-18 15:08] LABS: Vitamin B6 8.9 ng/mL (2.1-21.7)
[2022-06-18 17:18] LABS: Vitamin K1 211 pg/mL (130-1500)
[2022-06-18 20:54] LABS: Nicotinamide 38 ng/mL; Vit B3 - Nicotinic Acid <20 ng/mL; Vitamin B5 (Pantothenic Acid) <40 ng/mL (<275)
== END 2022-06-13 09:40 | disposition home or self-care (01) ==
LOC: HO.LAB 09:39
PROVIDERS: PCP Internal Medicine; Visit Provider Internal Medicine Gastroenterology
DX: K74.3 Primary biliary cirrhosis (principal); M85.80 Other specified disorders of bone density and structure, unspecified site; R74.8 Abnormal levels of other serum enzymes; K75.81 Nonalcoholic steatohepatitis (NASH)
CPT/HCPCS: 36415; 80053; 82180; 82306; 82607; 82728; 82746; 83540; 84207; 84425; 84446; 84590; 84591; 84597; 84630; 85025; 85610

== ENCOUNTER → 2022-07-27 08:04 | Outpatient (BNVA) | payer MEDICAID, SELFPAY | PROVIDERS: PCP Internal Medicine; Visit Provider Nurse Practitioner Family | DX: M79.641 Pain in right hand (principal); M25.512 Pain in left shoulder | CPT/HCPCS: 99212 ==

== ENCOUNTER 2022-08-09 09:22 | Outpatient (REF) | payer MEDICAID, SELFPAY ==
--- NOTE | ~2022-08-09 | US_ITS ---
EXAMINATION: US ABDOMEN LIMITED WITH LIVER ELASTOGRAPHY CLINICAL INFORMATION: Lim COMPARISON: Previous ultrasounds most recent July 2021 TECHNIQUE: Real-time imaging of the abdominal viscera. Noninvasive ultrasound liver fibrosis assessment is performed using [place] ElastPQ point quantification shear wave elastography (2D-SWE) with a C5-2 MHz transducer. Multiple elastography samples are obtained. FINDINGS: PANCREAS: . The visualized pancreatic head and body are normal in appearance. The remainder of the pancreas is obscured from visualization by the overlying bowel gas. LIVER: Normal. The liver demonstrates normal size, contour and echogenicity. No focal lesion or intrahepatic biliary duct dilatation. The right lobe measures 15 cm in length. The left lobe measures 13 cm in length. Portal flow is normal/hepatopedal Shear wave liver elastography median stiffness is 1.3 m/s (reference: normal median stiffness is 1.3 m/s or less). IQR/median stiffness to assess sampling precision is 0.07 (reference: good quality data set is IQR/median stiffness of 0.15 or less). GALLBLADDER: Normal. The gallbladder is physiologically distended without evidence of stones, sludge, polyps, wall thickening or pericholecystic fluid. COMMON BILE DUCT: Normal in caliber measuring 0.4 cm in diameter. RIGHT KIDNEY: Normal. No hydronephrosis. No renal calculi or focal parenchymal lesions. The kidney measures 11.6 cm in maximum dimension. FREE FLUID: None. US/US abdomen saucedo w elastography IMPRESSION: 1. Impression: Limited visualization of the tail the pancreas. Otherwise unremarkable exam. 2. Liver elastography: Adequate liver sampling. Normal liver sonography. REFERENCE: Society of Radiologists in Ultrasound Liver Stiffness Thresholds (2020): LIVER STIFFNESS THRESHOLDS: *Liver Stiffness equal or less than 1.3 m/s: High probability of being normal. *Liver Stiffness less than 1.7 m/s: In the absence of other known clinical signs, rules out compensated advanced chronic liver disease. *Liver Stiffness 1.7-2.1 m/s: Suggestive of compensated advanced chronic liver disease but need further test for confirmation. *Liver Stiffness over 2.1 m/s: Rules in compensated advanced chronic liver disease. *Liver Stiffness over 2.4 m/s: Suggestive of clinically significant portal hypertension. QUALITY OF DATA SET: *IQR/Median value equal or less than 0.15 implies a quality data set. *IQR/Median value over 0.15 implies a poor quality data set. SIGNIFICANT CHANGE FROM PRIOR EXAM: Significant change if liver stiffness measurement is 10% or greater from prior exam. OTHER CONSIDERATIONS: The stage of liver fibrosis may be overestimated in the setting of acute hepatitis, liver inflammation, elevated liver function tests, hepatic vascular congestion, obstructive cholestasis, non-fasting state, and infiltrative diseases such as amyloidosis and lymphoma. In some patients with NAFLD, the liver stiffness thresholds for compensated advanced chronic liver disease may be lower. In causes other than viral hepatitis and NAFLD, liver stiffness thresholds are not well established.
== END 2022-08-09 09:23 | disposition home or self-care (01) ==
LOC: HO.US 09:22
PROVIDERS: PCP Internal Medicine; Visit Provider Internal Medicine Gastroenterology
DX: K75.81 Nonalcoholic steatohepatitis (NASH) (principal); K74.60 Unspecified cirrhosis of liver
CPT/HCPCS: 76705; 76981

== ENCOUNTER 2023-03-02 15:15 | Outpatient (AMB) | payer MEDICAID, SELFPAY ==
--- NOTE | 2023-03-02 15:26 | MHC.OFFVIS ---
Intake Vital Signs 03/02/23 15:27 Height 5 ft 1 in Weight 176 lb 9.444 oz BMI 33.4 BP 126/68 Blood Pressure Location Rt brachial Position Sitting Pulse 69 Pulse Source Pulse Oximeter Temp 97.3 F Temp Source Skin Pulse Oximetry (%) 96 Intake Visit Reasons: PMR Intake Note: Pt seen today for PMR follow up. C/o bl hand pain , especially in right hand. States right index finger is just a mess Coiled Coil Inspector Required: No Allergies penicillin G [PENICILLIN G] Allergy (Intermediate, Verified 03/02/23 15:29) UNKNOWN Medication List - Last Reconciled 03/02/23 by Jumana Lopes MD albuterol sulfate 90 mcg/actuation 1 inh inhalation QID bupropion HCl 150 mg PO QAM celecoxib 200 mg PO DAILY cetirizine 10 mg PO DAILY cholecalciferol (vitamin D3) 50 mcg PO DAILY estradiol (Estring) 1 vag ring vaginal [id number] fluticasone propionate 50 mcg/actuation (Allergy Relief (fluticasone)) 1 spray intranasal DAILY ketotifen fumarate 0.025%(0.035%) 1 drp ophthalmic (eye) DAILY PRN levothyroxine 50 mcg PO QAM methenamine hippurate 1 g PO BID pantoprazole 20 mg PO BID 90 days sertraline 50 mg PO DAILY simvastatin 20 mg PO DAILY ursodiol 500 mg PO BID 3 months HPI HPI Comments History of Present Illness Details This is a 62-year-old female with a past medical history of PMR who presents for an urgent visit. Patient was diagnosed with PMR around 2018 based on shoulder stiffness and mildly elevated inflammatory markers. She was on prednisone for some time. She gained significant weight and had swelling of her face. Prednisone was discontinued in 2019. Without recurrence. Over the last year patient has been having bilateral hand pain and stiffness lasting for 30 minutes in the morning. She is having right index pain and swelling. She feels that or her fingers are more puffy. She takes Celebrex 200 mg daily with some improvement. She also has chronic low back pain. She gets ankle swelling with prolonged standing or walking. [facility] Medical History Allergic rhinitis COVID-19 vaccine administered GERD (gastroesophageal reflux disease) Arthritis Back pain Elevated alkaline phosphatase level Dyslipidemia Asthma Polymyalgia rheumatica Depression Osteopenia Hyperparathyroidism Surgical History Hx of hemorrhoidectomy Hx of melanoma excision Hx of esophagogastroduodenoscopy Hx of colonoscopy History of partial hysterectomy Family History Father Diabetes Mother No problems noted. Social History Household Members: Spouse Alcohol intake: never Patient Tobacco Use Status: Never used Tobacco Review of Systems [facility] [place] Reports deformity, Reports arthralgias, Reports joint swelling and Reports stiffness Physical Exam Vital Signs: Last Vital Signs Temp 97.3 F 03/02/23 15:27 Pulse 69 03/02/23 15:27 BP 126/68 03/02/23 15:27 Pulse Ox 96 03/02/23 15:27 BMI result Body Mass Index 33.4 Const General: cooperative, healthy appearing and comfortable Nutritional Appearance: obese Orientation/consciousness: patient oriented x3 Limitations: no limitations HEENT Head: Yes normocephalic and Yes atraumatic Mouth: moist mucous membranes Resp Effort & Inspection: normal respiratory effort and able to speak in complete sentences Auscultation: clear to auscultation bilaterally Cardio Rate: regular rate Rhythm: regular rhythm GI Inspection: No distended Palpation (GI): Soft to palpation and nontender Skin Other: No psoriasis patches could be appreciated Neuro General: patient oriented x3 Extrem Other: Osteoarthritic changes of both hands with early Heberden's and Augusto's nodes Prominent Augusto's and Heberden's node right index finger that are tender to palpation No wrist swelling or tenderness or pain with flexion and extension Normal range of motion of elbows and shoulders Negative MCP squeeze test bilaterally Negative MTP squeeze test bilaterally No knee pain with full flexion and extension Assessment & Plan Assessment & Plan (1) Pain in joints of right hand: Code(s): M25.541 - Pain in joints of right hand Plan: This is a 62-year-old female with a past medical history of PMR which was diagnosed in 2018, treated with steroids without recurrence who presents for right index pain and swelling. Will order labs to evaluate for inflammatory arthritis. Patient had x-rays done at noon with Orthopedics 2 weeks ago. Will retrieve those. Advised patient to start taking naproxen 500 mg Twice daily for 2 weeks. Discontinue Celebrex. Plan I spent 26 minutes reviewing patient's chart, evaluating patient, ordering diagnostic workup, counseling patient and documenting in the chart Orders: Orders Complete Blood Count Auto Diff Today M35.3 - Polymyalgia rheumatica Hepatitis A,B,C Profile Today Z11.59 - Encounter for screening for other viral diseases Comprehensive Met. Panel Today M35.3 - Polymyalgia rheumatica C Reactive Protein Today M35.3 - Polymyalgia rheumatica Erythrocyte Sedimentation Rate Today M35.3 - Polymyalgia rheumatica Medications: New naproxen Take 1 tab twice daily for 1 week then 1 tab daily for 1 week then take 1 tab once daily as needed for joint pain 60 tabs 0RF pain Coding Level of Care Code Est Pt Level 4 (02211) Diagnoses Pain in joints of right hand M25.541
[2023-03-02 15:27] VITALS: BP 126/68; PULSE 69; TEMP 36.3; O2SAT 96; BMI 33.4
== END 2023-03-02 16:02 | disposition home or self-care (01) ==
PROVIDERS: PCP Internal Medicine; Visit Provider Student in an Organized Health Care Education/Training Program
DX: M25.541 Pain in joints of right hand (principal)
CPT/HCPCS: 99214

== ENCOUNTER 2023-03-02 15:15 | Outpatient (REF) | payer MEDICAID, SELFPAY ==
[2023-03-02 16:18] LABS: MANUAL DIFF FLAG NO
[2023-03-02 17:28] LABS: Basophils Percent Auto 0.4 % (0-2); Eosinophils Absolute Auto 0.1 X10*3/uL (0.0-0.4); Eosinophils Percent Auto 1.3 % (0-4); Hematocrit 39.4 % (37.0-47.0); Hemoglobin 13.1 g/dl (12.0-16.0); Imm Gran Abs Auto 0.01 X10*3/uL (0.00-0.03); Imm Gran Pct Auto 0.1 % (0.0-0.4); Lymphocytes Absolute Auto 2.3 X10*3/uL (1.2-4.9); Lymphocytes Percent Auto 32.1 % (20-40); Mean Corpuscular HGB Conc 33.2 g/dl (31.0-35.0); Mean Corpuscular Hemoglobin 29.7 pg (27.0-33.0); Mean Corpuscular Volume 89.3 fL (80.0-98.0); Mean Platelet Volume 11.6 fL (9.4-12.3); Monocytes Absolute Auto 0.5 X10*3/uL (0.1-1.2); Monocytes Percent Auto 7.5 % (2-11); Neutrophils Absolute Auto 4.2 x10*3/uL (2.0-8.3); Neutrophils Percent Auto 58.6 % (45-73); Platelet Count 219 X10*3/uL (160-400); Red Blood Count 4.41 X10*6/uL (4.20-5.50); Red Cell Distribution Width 13.2 % (11.0-16.0); White Blood Count 7.2 X10*3/uL (4.8-10.8)
[2023-03-02 18:04] LABS: Alanine Aminotransferase 22 U/L (0-31); Albumin Level 4.4 g/dL (3.5-5.0); Alkaline Phosphatase 120 U/L (39-117); Anion Gap 12 (12-20); Aspartate Amino Transferase 22 U/L (5-31); Bilirubin Total 0.3 mg/dL (0.0-1.0); Blood Urea Nitrogen 13 mg/dL (9-16); Calcium 10.3 mg/dL (8.4-10.2); Carbon Dioxide 27 mmol/L (22-29); Chloride 107 mmol/L (96-108); Estimated Glomerular Filt Rate > 60; Glucose Random 93 mg/dL (60-115); Potassium 3.9 mmol/L (3.3-5.1); Sodium 142 mmol/L (135-145); Total Protein 7.3 g/dL (6.5-8.0)
[2023-03-02 18:17] LABS: Erythrocyte Sedimentation Rate 28 MM/HR (0-20)
[2023-03-03 04:56] LABS: HBS Num1 3.72 mIU/mL (0-7.99); Hepatitis A Antibody IgM 0.46 Index (0-0.79); Hepatitis B Core Antibody Nonreactive (Nonreactive); Hepatitis B Surface Antigen Negative (Negative); ~HepC Num1 0.06 S/CO (0.00-0.79); ~Hepatitis A Antibody IgM Nonreactive (Nonreactive); ~Hepatitis B Surface Antibody NONREACTIVE (Nonreactive); ~Hepatitis C Antibody Nonreactive (Nonreactive)
== END 2023-03-02 15:16 | disposition home or self-care (01) ==
LOC: HO.LAB 15:15
PROVIDERS: PCP Internal Medicine; Visit Provider Student in an Organized Health Care Education/Training Program
DX: Z11.59 Encounter for screening for other viral diseases (principal); M35.3 Polymyalgia rheumatica; M25.541 Pain in joints of right hand
CPT/HCPCS: 36415; 80053; 85025; 85652; 86140; 86704; 86706; 86709; 86803; 87340; 99212

== ENCOUNTER 2023-03-21 13:25 | Outpatient (AMB) | payer MEDICAID, SELFPAY ==
[2023-03-21 13:42] VITALS: BP 128/76; PULSE 66; TEMP 36.6; O2SAT 98; BMI 33.7
--- NOTE | 2023-03-21 13:42 | MHC.OFFVIS ---
Intake Vital Signs 03/21/23 13:42 Height 5 ft 1 in Weight 178 lb 9.191 oz BMI 33.7 BP 128/76 Blood Pressure Location Rt brachial Position Sitting Pulse 66 Pulse Source Pulse Oximeter Temp 97.8 F Temp Source Skin Pulse Oximetry (%) 98 Intake Visit Reasons: OA Intake Note: Pt seen today for OA follow up. States she feels naproxen works better than celebrex but kills her stomach Command Center Analyst Required: No Accompanied by: Self / Same As Patient Allergies penicillin G [PENICILLIN G] Allergy (Intermediate, Verified 03/21/23 13:45) UNKNOWN Medication List - Last Reconciled 03/21/23 by Jumana Lopes MD albuterol sulfate 90 mcg/actuation 1 inh inhalation QID bupropion HCl 150 mg PO QAM cetirizine 10 mg PO DAILY cholecalciferol (vitamin D3) 50 mcg PO DAILY estradiol (Estring) 1 vag ring vaginal [id number] fluticasone propionate 50 mcg/actuation (Allergy Relief (fluticasone)) 1 spray intranasal DAILY ketotifen fumarate 0.025%(0.035%) 1 drp ophthalmic (eye) DAILY PRN levothyroxine 50 mcg PO QAM methenamine hippurate 1 g PO BID pantoprazole 20 mg PO BID 90 days sertraline 50 mg PO DAILY simvastatin 20 mg PO DAILY ursodiol 500 mg PO BID 3 months HPI HPI Comments History of Present Illness Details Patient returns for follow-up. She states that she has been taking naproxen as instructed for the last 2 weeks with improvement in her finger pain. It causes GI upset however. She had to stop taking her vitamins. Initial history: This is a 62-year-old female with a past medical history of PMR who presents for an urgent visit. Patient was diagnosed with PMR around 2018 based on shoulder stiffness and mildly elevated inflammatory markers. She was on prednisone for some time. She gained significant weight and had swelling of her face. Prednisone was discontinued in 2019. Without recurrence. Over the last year patient has been having bilateral hand pain and stiffness lasting for 30 minutes in the morning. She is having right index pain and swelling. She feels that or her fingers are more puffy. She takes Celebrex 200 mg daily with some improvement. She also has chronic low back pain. She gets ankle swelling with prolonged standing or walking. [facility] Medical History Allergic rhinitis COVID-19 vaccine administered GERD (gastroesophageal reflux disease) Arthritis Back pain Elevated alkaline phosphatase level Dyslipidemia Asthma Polymyalgia rheumatica Depression Osteopenia Hyperparathyroidism Surgical History Hx of hemorrhoidectomy Hx of melanoma excision Hx of esophagogastroduodenoscopy Hx of colonoscopy History of partial hysterectomy Family History Father Diabetes Mother No problems noted. Social History Household Members: Spouse Alcohol intake: never Patient Tobacco Use Status: Never used Tobacco Review of Systems [facility] [place] Reports arthralgias Physical Exam Vital Signs: Last Vital Signs Temp 97.8 F 03/21/23 13:42 Pulse 66 03/21/23 13:42 BP 128/76 03/21/23 13:42 Pulse Ox 98 03/21/23 13:42 BMI result Body Mass Index 33.7 Const General: cooperative, healthy appearing and comfortable Nutritional Appearance: obese Orientation/consciousness: patient oriented x3 Limitations: no limitations HEENT Head: Yes normocephalic and Yes atraumatic Mouth: moist mucous membranes Resp Effort & Inspection: normal respiratory effort and able to speak in complete sentences Skin Other: No psoriasis patches could be appreciated Neuro General: patient oriented x3 Extrem Other: Osteoarthritic changes of both hands with early Heberden's and Augusto's nodes Heberden's and Augusto's nodes of right hand are not swollen or tender today No wrist swelling or tenderness or pain with flexion and extension Normal range of motion of elbows and shoulders Results Reviewed Results Reviewed: Bilateral hand x-rays 02/17 Interpretation by [facility] Impression:? X-rays ordered, obtained and reviewed independently:? Four view x-rays of bilateral hands reveal no acute fractures or dislocations.? There is generalized arthritic change about the digits, particularly the right index finger D IP joint with dorsal osteophyte formation.? Bilateral positive ulnar variance Assessment & Plan Assessment & Plan (1) Pain in joints of right hand: Code(s): M25.541 - Pain in joints of right hand Plan: This is a 62-year-old female with a past medical history of PMR which was diagnosed in 2018, treated with steroids without recurrence who presented with right index pain and swelling. Symptoms resolved with 2 week course of naproxen 500 mg Twice daily but caused some GI upset. Dist cost hand osteoarthritis with sedation. Advised patient to try to avoid systemic NSAIDs as much as possible. Can take Tylenol Arthritis. Try [id number] Voltaren gel Follow-up as needed Plan I spent 16 minutes reviewing patient's chart, evaluating patient, counseling patient and documenting in the chart Coding Level of Care Code Est Pt Level 3 (47719) Diagnoses Pain in joints of right hand M25.541
== END 2023-03-21 14:11 | disposition home or self-care (01) ==
PROVIDERS: PCP Internal Medicine; Visit Provider Student in an Organized Health Care Education/Training Program
DX: M25.541 Pain in joints of right hand (principal)
CPT/HCPCS: 99213

== ENCOUNTER → 2023-03-21 13:25 | Outpatient (BNVA) | payer MEDICAID, SELFPAY | PROVIDERS: PCP Internal Medicine; Visit Provider Student in an Organized Health Care Education/Training Program | DX: M25.541 Pain in joints of right hand (principal) | CPT/HCPCS: 99212 ==

== ENCOUNTER → 2024-02-22 11:45 | Outpatient (RCR) | payer MEDICAID, SELFPAY ==
--- NOTE | 2020-06-11 09:23 | HO.HEMONCTE1 ---
[facility] Telehealth - Telehealth Location of Provider rendering services: Heme Onc office. Patient Identification confirmed using: Name, : Yes Patient informed of any privacy concerns related to visit: Yes Medical Summary - Medical Summary Date of Service: 06/11/20 Chief complaint: Follow-up for: Hypogammaglobulinemia. Medical Summary: DIAGNOSIS: HYPOGAMMAGLOBULINEMIA. Interval History Interval history: This is a pleasant 59-year-old lady with whom a tele interview was held. The patient tells me she feels tired especially in the middle of the day. Other than that she has been doing quite well. She denies any fever nor chills. She has a slight headache she attributes that to a sinus infection. He has had chronic joint pains involving her wrists and elbows. Lately her back has been hurting as well. She uses Tylenol Arthritis and local heat. She denies chest pain or trouble breathing. No abdominal pain nausea vomiting heartburn indigestion. Her bowels are working without any gross blood in it. She enjoys a good appetite. She tries to eat a balanced diet. Her Weight is stable. She is in good spirits. Rest of the review of systems is unremarkable. Review of Systems - Constitutional Reports system reviewed and no additional complaints, except as documented - Eyes Reports system reviewed and no additional complaints, except as documented - ENT Reports system reviewed and no additional complaints, except as documented - Cardiovascular Reports system reviewed and no additional complaints, except as documented - Respiratory Reports no additional respiratory complaints - Gastrointestinal Reports system reviewed and no additional complaints, except as documented - Genitourinary Reports no additional female genitourinary complaints - Musculoskeletal Reports system reviewed and no additional complaints, except as documented - Integumentary/Breasts Skin/Breast: Reports no additional skin complaints - Neurologic Reports system reviewed and no additional complaints, except as documented - Psychiatric Reports system reviewed and no additional complaints, except as documented - Endocrine Reports no additional endocrine complaints - Hematologic/Lymphatic Reports system reviewed and no additional complaints, except as documented - Allergic/Immunologic Reports system reviewed and no additional complaints, except as documented Home Medications and Allergies Home Medications Medication Instructions Recorded Confirmed Type albuterol sulfate 90 mcg/actuation 1 inh INHALATION QID 05/04/20 06/11/20 History aerosol inhaler bupropion HCl 150 mg 24 hr tablet, 150 mg PO QAM 05/04/20 06/11/20 History extended release cetirizine 10 mg tablet 10 mg PO DAILY 05/04/20 06/11/20 History estradiol 1 vag ring VAGINAL [id number] 05/04/20 06/11/20 History fluticasone propionate 50 1 spray INTRANASAL DAILY 05/04/20 06/11/20 History mcg/actuation nasal spray,suspension methenamine hippurate 1 gram tablet 1 g PO BID 05/04/20 06/11/20 History omeprazole 20 mg capsule,delayed 20 mg PO DAILY 05/04/20 06/11/20 History release simvastatin 10 mg tablet 10 mg PO DAILY 05/04/20 06/11/20 History Allergies Allergy/AdvReac Type Severity Reaction Status Date / Time penicillin G [PENICILLIN G] Allergy Intermediate UNKNOWN Verified 06/11/20: penicillin V Allergy Unknown Unknown Verified 06/11/20 09: Exam - Constitutional Present: no acute distress Progress Note: A/P (1) Hypogammaglobulinemia Status: Acute Assessment and plan: This is a pleasant 59-year-old lady with a history of polymyalgia rheumatica. She was noted to have a borderline low gammaglobulin fraction on SPEP. However her SIEP was normal. Serum free light chain ratio came back 1.36 which is normal. Beta 2 microglobulin 1.67 is in the normal range as well. Most likely the mild hypogammaglobulinemia is related to underlying rheumatological condition, PMR. PLAN: I will continue to monitor her. She will return here in 3 months. Will check labs at that time. She will continue to follow up with , regarding her joint issues. 25 minutes were spent coordinating her care including the tele interview, review of labs, review of imaging, and counseling the patient. Thank you, CC: Dr. Garland. - Time Spent With Patient Total time spent is greater than 50% in coordination of care (as documented) at patient's floor/unit and/or counseling patient: 15 - 24 minutes
--- NOTE | 2020-06-11 09:56 | MHC.HEMONC ---
Televisit today. Clinical summary updated with nurse. Provider spoke with patient. Follow-up booked and mailed.
--- NOTE | 2020-09-08 09:20 | HO.HEMONCTE1 ---
[facility]em[facility]Onc Clinic Telehealth - Telehealth Location of Provider rendering services: Hem/onc office. Location of Patient: Home. Patient Identification confirmed using: Name, : Yes Telehealth Method: Via telephone. Patient verbally consented to treatment: Yes. Patient verbally consented to billing insurance company: Yes Patient informed of any privacy concerns related to visit: Yes Medical Summary - Medical Summary Date of Service: 09/08/20 Medical Summary: DIAGNOSIS: HYPOGAMMAGLOBULINEMIA. Interval History Interval history: This is a pleasant 60 year-old lady with whom a tele interview was held. The patient tells me she had a minor knee surgery on 08/28 by [facility]. She has been recovering well. She can now walk without crutches. She is no longer on narcotics so she can drive. Energy level is good, now that she has been for a couple of weeks. Other than that she has been doing quite well. She denies any fever nor chills. She denies chest pain or trouble breathing. She has had chronic joint pains involving her wrists and elbows. Sometimes her back hurts. She uses Tylenol Arthritis and local heat. No abdominal pain nausea vomiting heartburn indigestion. Her bowels are working without any gross blood in it. Her appetite is too good. She tries to eat a balanced diet. Her Weight is stable. She is in good spirits. Rest of the review of systems is unremarkable. Review of Systems - Constitutional Reports system reviewed and no additional complaints, except as documented - Eyes Reports system reviewed and no additional complaints, except as documented - ENT Reports system reviewed and no additional complaints, except as documented - Cardiovascular Reports system reviewed and no additional complaints, except as documented - Respiratory Reports no additional respiratory complaints - Gastrointestinal Reports system reviewed and no additional complaints, except as documented - Genitourinary Reports no additional female genitourinary complaints - Musculoskeletal Reports system reviewed and no additional complaints, except as documented - Integumentary/Breasts Skin/Breast: Reports no additional skin complaints - Neurologic Reports system reviewed and no additional complaints, except as documented - Psychiatric Reports system reviewed and no additional complaints, except as documented - Endocrine Reports no additional endocrine complaints - Hematologic/Lymphatic Reports system reviewed and no additional complaints, except as documented - Allergic/Immunologic Reports system reviewed and no additional complaints, except as documented Oncology Screenings - ECOG Performance Status ECOG Performance Status: 0 Home Medications and Allergies Home Medications Medication Instructions Recorded Confirmed Type albuterol sulfate 90 mcg/actuation 1 inh INHALATION QID 05/04/20 08/04/20 History aerosol inhaler bupropion HCl 150 mg 24 hr tablet, 150 mg PO QAM 05/04/20 08/04/20 History extended release cetirizine 10 mg tablet 10 mg PO DAILY 05/04/20 08/04/20 History estradiol 1 vag ring VAGINAL [id number] 05/04/20 08/04/20 History fluticasone propionate 50 1 spray INTRANASAL DAILY 05/04/20 08/04/20 History mcg/actuation nasal spray,suspension methenamine hippurate 1 gram tablet 1 g PO BID 05/04/20 08/04/20 History omeprazole 20 mg capsule,delayed 20 mg PO DAILY 05/04/20 08/04/20 History release simvastatin 10 mg tablet 10 mg PO DAILY 05/04/20 08/04/20 History pantoprazole 20 mg tablet,delayed 20 mg PO DAILY 06/16/20 09/08/20 History release celecoxib 50 mg capsule 50 mg PO DAILY 08/04/20 09/08/20 History Allergies Allergy/AdvReac Type Severity Reaction Status Date / Time penicillin G [PENICILLIN G] Allergy Intermediate UNKNOWN Verified 06/16/20 10:37 penicillin V Allergy Unknown Unknown Verified 06/16/20 10:37 Exam - Constitutional Present: no acute distress Progress Note: A/P (1) Hypogammaglobulinemia Status: Acute Assessment and plan: DATABASE: 09/14: CBC: WBC 7.7, HGB 13.3, HCT 42.3, MCV 90.2, PLT 263. CMP: LYTES: WNL, glue 116, Ca L9 0.4, a lb 4.4. LFTs: 0.6/254/47/59. SIEP: IgG 795/IgA This is a pleasant 60 year-old lady with a history of polymyalgia rheumatica. She was noted to have a borderline low gammaglobulin fraction on SPEP. However her SIEP was normal. Serum free light chain ratio came back 1.36 which is normal. Beta 2 microglobulin 1.67 is in the normal range as well. Most likely the mild hypogammaglobulinemia is related to underlying rheumatological condition, PMR. She is clinically doing well. She just had knee surgery. She is recovering well. PLAN: I will continue to monitor her. She will return in a couple of Days for labs. She will return here in 3 months. She will continue to follow up with , regarding her joint issues. 24 minutes were spent coordinating her care including the tele interview, review of labs, review of imaging, and counseling the patient. Thank you, CC: Dr. Garland. - Time Spent With Patient Total time spent is greater than 50% in coordination of care (as documented) at patient's floor/unit and/or counseling patient: 15 - 24 minutes
--- NOTE | 2020-09-08 10:00 | MHC.HEMONCMA ---
Patient had a televisit for hypogammaglobulinemia. Pt scheduled to come to office for labs on .
== END | disposition home or self-care (01) ==
LOC: HO.ONC 06-11 09:27
PROVIDERS: Visit Provider Internal Medicine Medical Oncology
DX: D80.1 Nonfamilial hypogammaglobulinemia (principal); M35.3 Polymyalgia rheumatica

== ENCOUNTER 2024-06-21 09:39 | Outpatient (AMB) | payer MEDICAID, SELFPAY ==
--- NOTE | 2024-06-21 09:39 | A.OFFVIS_ITS ---
Intake Visit Reasons: medication renewal Intake Note: CC: She states she has been having a feeling that she is sick to her stomach and once in a while she will vomit. States that she has acid reflux every day and pantoprazole is not working. Allergies penicillin G [PENICILLIN G] Allergy (Intermediate, Verified 06/21/24 09:39) UNKNOWN HPI HPI medication renewal: Details: 63 yr old f w hx of PMR, HLP, depression, hyperparathyroidism, asthma and hypogammaglobulinemia being called for f/u for abn LFT RECAP: SHe had c/o epigastric heaviness, food sticks in stomach with vomiting of food up 1 hr later she also had reflux, keeps coming up, with some help with pantoprazole, used to be more effective in the past had constipation all her life she had egd and colon with [facility] 5 yrs ago for hx of polyps and reflux (colonoscopy q 5yrs), she denied alcohol intake except social no herbs no NSAID< tylenol for pain prn, never exceeds doses she does get swollen joints, stiffness no skin rashes + mouth sores no IV drug use or tattoos does say LFT first noted to be abn 1 yr ago, no new meds at that time LABS: raised GGT, AST, ALT< bili nml, alk phosp-- macro form noted (can be seen in any liver inflammation, malignancy) celiac serology--negative AMA pos--LFT had came down with ursodiol FH--pos for RA, no FH of liver disease US liver and elastography--borderline, increased echotexture she had EGD--12/17/20 with possible barretts and gastritis, rept US 07/2021 --elastography improved to 1.7, otherwise unremarkable US INTERIM: she has noted worsening nausea with reflux few times denies dysphagia no abdominal pain she has some bloating she has chronic constipation appetite is good weight is stable she is taking pantoprazole 20 mg BID, and compliant with the ursodiol she is not taking a multivitamin EXAM: Relaxed, good color-talking easily A/P; 1/ Suspected PBC 2/ worse GERD PLAN: 1/ rechekc liver labs--she is going jul 01 as PCP ordered labs 2/ advised on how to take PPI correctly 3/ cont urosdiol 4/ EGD and [place] for further assessment, hx of polyps as well--suprep PFSH Medical History Allergic rhinitis COVID-19 vaccine administered GERD (gastroesophageal reflux disease) Arthritis Back pain Elevated alkaline phosphatase level Dyslipidemia Asthma Polymyalgia rheumatica Depression Osteopenia Hyperparathyroidism Surgical History Hx of hemorrhoidectomy Hx of melanoma excision Hx of esophagogastroduodenoscopy Hx of colonoscopy History of partial hysterectomy Family History Father Diabetes Mother No problems noted. Social History Household Members: Spouse Alcohol intake: never Patient Tobacco Use Status: Never used Tobacco Telehealth Telehealth Telehealth Platform[facility] Location of provider rendering services: practice address Location of patient: address on file Patient Identification confirmed using: Name, : Yes Telehealth method: video Patient verbally consented to treatment: Yes Patient verbally consented to billing insurance company: Yes Patient informed of any privacy concerns related to visit: Yes Minutes spent on Phone/Video with Pt.: 6 Assessment & Plan Assessment & Plan (1) Primary biliary cholangitis: Code(s): K74.3 - Primary biliary cirrhosis Category: Medical Plan: as above Coding Level of Care Code Tele Est Pt Level 3 (06473) Diagnoses Primary biliary cholangitis K74.3
== END 2024-06-21 11:11 | disposition home or self-care (01) ==
LOC: HO.HGI 09:39
PROVIDERS: PCP Internal Medicine; Visit Provider Internal Medicine Gastroenterology
DX: K74.3 Primary biliary cirrhosis (principal)
CPT/HCPCS: 99213

== ENCOUNTER → 2024-06-21 09:39 | Outpatient (BNVA) | payer MEDICAID, SELFPAY | PROVIDERS: PCP Internal Medicine; Visit Provider Internal Medicine Gastroenterology ==

== ENCOUNTER 2024-11-21 05:55 | Day surgery (SDC) | payer MEDICAID, SELFPAY ==
--- OUTSIDE RECORDS SUMMARY | 2024-10-31 14:38 | XMS_ITS | Clinical Summary ---
Author Organization [address] [facility] Address [address] [place] [phone] Phone Care Team Providers Care Parking Lot Spotter Name Role Phone Marbin Peñaloza DO Primary Care Provider [phone] Surgical History Surgery Date Site/Laterality Comments OTHER SURGICAL HISTORY PROCEDURE: SKIN EXCISION; COMMENT: BCC Medical History Medical History Date Comments History of melanoma 01/11/2017 DX:History o f melanoma; COMMENT: Age 30 mid back Actinic keratitis 01/11/2017 DX:Actinic ker atitis; COMMENT: Dorsal nose Basal cell carcinoma 01/11/2017 DX:Basal ce ll carcinoma; COMMENT: Left thumb/ volar wrist 2015 Polymyalgia rheumatica (CMS/HCC V24) DX:Polymyalgia rheumatica (HCC) Asthma DX:Asthma IGT (impaired glucose tolerance) DX:IGT (impaired glucose tolerance) Depression with anxiety DX:Depre ssion with anxiety GERD (gastroesophageal reflux disease) DX:GERD (gastroesophageal reflux disease) Osteopenia DX:Osteopenia Allergic rhinitis DX:Allergic rh initis Adrenal adenoma, left 03/2014 DX:Adrenal adenoma, left; COMMENT: 1.2cm benign Hepatic cyst 03/2014 DX:Hepatic cyst; COMMENT: 2-3mm Abscess of lymph node 03/2014 DX:Abscess of lymph node Pulmonary nodule DX:Pulmonary no dule Chronic UTI DX:Chronic UTI IFG (impaired fasting glucose) D X:IFG (impaired fasting glucose) Hypothyroidism DX:Hypothyroidis m Family History Medical History Relation Name Comments Heart failure Father at 77, ai cd Relation Name Status Comments Brother Father Mother Alive Sister Alive Social History Tobacco Use Types Packs/Day Years Used Date Smoking Tobacco: Never Smokeless Tobacco: Never Alcohol Use Standard Drinks/Week Comments Never 0 (1 standard drink = 0.6 oz pur e alcohol) Comments Unknown Sex and Gender Information Value Date Recorded Sex Assigned at Not on file Legal Sex Female 11:44 PM EST Gender Identity Not on file Sexual Orientation Not on file Obstetrics History Last Filed Vital Signs Vital Sign Reading Time Taken Comments Blood Pressure 130/80 01/27/2023 10:15 AM EDT Sitting L Arm Pulse 74 01/27/2023 10:15 AM EDT Temperature - - Respiratory Rate - - Oxygen Saturation - - Inhaled Oxygen Concentration - - Weight 80.7 kg (177 lb 12.8 oz) 01/27/2023 10:15 AM EDT Height 157.5 cm (5' 2 ) 01/27/2023 10:1 5 AM EDT Body Mass Index 32.52 01/27/2023 10:15 AM EDT Plan of Treatment Health Maintenance Due Date Last Done Comments Breast Cancer Screening 1960 DTaP,Tdap,and Td Vaccines (1 - Tdap) 1979 Hepatitis A Vaccines (1 of 2 - Risk 2-dose series) 1979 Pneumococcal Vaccine: 50+ Years (1 of 2 - PCV) 1979 Pneumococcal Vaccine: Pediatrics (0 to 5 Years) and At-Risk Patients (6 to 64 Years) (1 of 2 - PCV) 1979 Cervical Cancer Screening: Pap Smear 1981 Zoster Vaccines (2 of 2) 04/19/2018 02/22/2018 Hepatitis B Vaccines (1 of 3 - Risk 3-dose series) 2020 RSV Immunization Adult Patients (1 - Risk 60-74 years 1-dose series) 2020 COVID-19 Vaccine (3 - Pfizer risk series) 12/06/2020 11/08/2020, 10/19/2020 Colorectal Cancer Screening: Colonoscopy 06/04/2022 Depression Screening 06/04/2022 HIV Screening 06/04/2022 Hepatitis C Screening 06/04/2022 Social Influencers of Health Screening 06/04/2022 Hypertension/CHF/CAD Annual BMP Blood Test 07/01/2025 07/01/2024 Cholesterol Screening (Lipid Panel) 07/01/2029 07/01/2024 Influenza Vaccine Completed 02/27/2024, , 02/24/2022, Additional history exists HIB Vaccines Aged Out No longer eligi ble based on patient's age to complete this topic HPV Vaccines Aged Out No longer eligi ble based on patient's age to complete this topic IPV Vaccines Aged Out No longer eligi ble based on patient's age to complete this topic MMR Vaccines Aged Out No longer eligi ble based on patient's age to complete this topic Meningococcal ACWY Vaccine Aged Out N o longer eligible based on patient's age to complete this topic Meningococcal B Vaccine Aged Out No l onger eligible based on patient's age to complete this topic RSV Immunization Patients Under 20 months Aged Out No longer eligible based on patient's age to complete this topic Varicella Vaccines Aged Out No longer eligible based on patient's age to complete this topic Procedures Procedure Name Priority Date/Time Associated Diagnosis Comments BASIC METABOLIC PANEL Routine 07/01/2024 3:01 PM EST Hyperlipemia Myxedema heart disease Routine general medical examination at a [facility] facility LIPID PANEL WITH REFLEX TO DIRECT LDL Routine 07/01/2024 3:01 PM EST Hyperlipemia Myxedema heart disease Routine general medical examination at [facility] from Last 3 Months or Most Recently Relevant to Health Maintenance Results * (ABNORMAL) Lipid panel with reflex to direct LDL (07/01/2024 3:01 PM EST) Cholesterol 193 0 - 200 mg/dL LAB CHEMISTRY METHOD 07/01/2024 5:18 PM EST [facility] Triglycerides 112 0 - 150 mg/dL LAB CHEMISTRY METHOD 07/01/2024 5:18 PM EST [facility] HDL 65 >=40 mg/dL LAB CHEMISTRY METHOD 07/01/2024 5:18 PM [facility] LDL Calculated 106(H) 0 - 100 mg/dL LAB CHEMISTRY METHOD 07/01/2024 5:18 PM [facility] VLDL Cholesterol Sunny 22.4 mg/dL LAB CHEMISTRY METHOD 07/01/2024 5:18 PM [facility] Non HDL Chol. (LDL+VLDL) 128 <145 mg/dL LAB CHEMISTRY METHOD 07/01/2024 5:18 PM [facility] Chol/HDL Ratio 3.0 0.0 - 4.4 LAB CHEMISTRY METHOD 07/01/2024 5:18 PM [facility] Blood Venous blood specimen / Unknown Venipuncture / Unknown 07/01/2024 3:01 PM EST 07/01/2024 3:01 PM EST us Cora Perez [facility] LAB BLOOD ORDERABLES Fi nal Result [facility] [address] [place] [address], * (ABNORMAL) Basic metabolic panel (07/01/2024 3:01 PM EST) Sodium 141 133 - 145 mmol/L LAB CHEMISTRY METHOD 07/01/2024 5:18 PM [facility] Potassium 3.9 3.5 - 5.5 mmol/L LAB CHEMISTRY METHOD 07/01/2024 5:18 PM [facility] Chloride 108 96 - 110 mmol/L LAB CHEMISTRY METHOD 07/01/2024 5:18 PM [facility] CO2 27 21 - 32 mmol/L LAB CHEMISTRY METHOD 07/01/2024 5:18 PM [facility] Anion Gap 6 3 - 11 LAB CHEMISTRY METHOD 07/01/2024 5:18 PM [facility] Glucose 115(H) 70 - 100 mg/dL LAB CHEMISTRY METHOD 07/01/2024 5:18 PM [facility] BUN 10 5 - 25 mg/dL LAB CHEMISTRY METHOD 07/01/2024 5:18 PM [facility] Creatinine 0.61 0.50 - 1.10 mg/dL LAB CHEMISTRY METHOD 07/01/2024 5:18 PM [facility] eGFR 100 >=60 mL/min/1. 73m2 LAB CHEMISTRY METHOD 07/01/2024 5:18 PM EST [facility] Comment:Calculation based on the??Chronic Kidney Disease Epidemiology Collaboration (CKD-EPI) equation refit??without adjustment for race. BUN/Creatinine Ratio 16.4 LAB CHEMISTRY METHOD 07/01/2024 5:18 PM EST [facility] Calcium 9.2 8.5 - 10.5 mg/dL LAB CHEMISTRY METHOD 07/01/2024 5:18 PM EST [facility] Blood Venous blood specimen / Unknown Venipuncture / Unknown 07/01/2024 3:01 PM EST 07/01/2024 3:01 PM EST us Cora Perez [facility] LAB BLOOD ORDERABLES Fi nal Result [facility] [address] [place] [address], from Last 3 Months or Most Recently Relevant to Health Maintenance Insurance MEDICAID - [place] Care Teams Parking Lot Spotter Relationship Specialty Start Date End Date Marbin Peñaloza DO [address] [place] [phone] PCP - General Internal Medicine 10/13/17
[2024-11-19 16:07] VITALS: BMI 33.6
--- NOTE | 2024-11-20 12:11 | HO.ANESPROP2 ---
Documented by User: Brea Toledo NP 11/20/24 12:12 HPI - Anesthesia Eval Consult details Narrative: 64yo F for Upper Endoscopy and Colonoscopy PMR - no steroids since 2018 PMFSH Active Problems Active Problems: All Active Problems Pain in joints of right hand (Acute) Screening for viral disease (Acute) Osteoarthritis of right knee (Acute) Medication monitoring encounter (Acute) Primary biliary cholangitis (Acute) Hypogammaglobulinemia (Acute) Elevated C-reactive protein (CRP) (Acute) Early satiety (Acute) Elevated alkaline phosphatase level (Acute) Dyslipidemia (Acute) Asthma (Acute) Polymyalgia rheumatica (Acute) Depression (Acute) Osteopenia (Acute) Hyperparathyroidism (Acute) Past Medical History Medical History Allergic rhinitis COVID-19 vaccine administered GERD (gastroesophageal reflux disease) Arthritis Back pain Elevated alkaline phosphatase level Dyslipidemia Asthma Polymyalgia rheumatica Depression Osteopenia Hyperparathyroidism Family History Family History Father Diabetes Mother No problems noted. Family history of problems with anesthesia: No Surgical History Surgical History Hx of hemorrhoidectomy Hx of melanoma excision Hx of esophagogastroduodenoscopy Hx of colonoscopy History of partial hysterectomy History of Problems with Anesthesia: No Social History Social History Household Members: Spouse Are you a primary care transitions manager to a significant other at home: No Do you presently have visiting nurse or other home services: No Alcohol intake: never Patient Tobacco Use Status: Never used Tobacco Have you been hit, kicked, punched, or otherwise hurt by someone within the past year? If so, by whom?: No Are you DNR?: No Advance Directives: No Advance Directives Information Provided: Yes Poor oral hygiene: No Meds Allergies Allergy/AdvReac Type Severity Reaction Status Date / Time penicillin G [PENICILLIN G] Allergy Intermediate UNKNOWN Verified 11/21/24 06:39 Home Medications ?Medication ?Instructions ?Recorded ?Confirmed ?Last Taken ?Type albuterol sulfate 90 mcg/actuation 1 inh inhalation QID 05/04/20 11/21/24 12/17/20 11:00 History aerosol inhaler bupropion HCl 150 mg 24 hr tablet, 150 mg PO QAM 05/04/20 11/21/24 Unknown History extended release cetirizine 10 mg tablet 10 mg PO DAILY 05/04/20 11/21/24 Unknown History estradiol 2 mg (7.5 mcg/24 hour) 1 vag ring vaginal [id number] 05/04/20 11/21/24 Unknown History vaginal ring (Estring) fluticasone propionate 50 1 spray intranasal DAILY 05/04/20 11/21/24 12/17/20 11:00 History mcg/actuation nasal spray,suspension (Allergy Relief (fluticasone)) methenamine hippurate 1 gram tablet 1 g PO BID 05/04/20 11/21/24 Unknown History ketotifen fumarate 0.025 % (0.035 1 drp ophthalmic (eye) DAILY PRN 11/18/21 11/21/24 Unknown History %) eye drops eye drops cholecalciferol (vitamin D3) 50 50 mcg PO DAILY 06/10/22 11/21/24 Unknown History mcg (2,000 unit) tablet sertraline 50 mg tablet 50 mg PO DAILY 06/10/22 11/21/24 Unknown History simvastatin 20 mg tablet 20 mg PO DAILY 06/10/22 11/21/24 Unknown History betamethasone dipropionate 0.05 % appl topical 06/21/24 Unknown History topical cream dupilumab 300 mg/2 mL subcutaneous mg subcut 06/21/24 Unknown History pen injector (Dupixent) levothyroxine 75 mcg tablet 75 mcg PO QAM 06/21/24 11/21/24 Unknown History loratadine 10 mg tablet 10 mg PO DAILY 06/21/24 11/21/24 Unknown History Exam Height,Weight and Vital Signs: Height 5 ft 1 in Weight 80.739 kg Assessment and Plan Assessment Anesthesia Assessment: Chart Reviewed Final Anesthetic Review Family History of Problems with Anesthesia: No History of Problems with Anesthesia: No Documented by User: Vernon Leo MD 11/21/24 07:43 [facility] Past Medical History Medical History Allergic rhinitis COVID-19 vaccine administered GERD (gastroesophageal reflux disease) Arthritis Back pain Elevated alkaline phosphatase level Dyslipidemia Asthma Polymyalgia rheumatica Depression Osteopenia Hyperparathyroidism Family History Family History Father Diabetes Mother No problems noted. Surgical History Surgical History Hx of hemorrhoidectomy Hx of melanoma excision Hx of esophagogastroduodenoscopy Hx of colonoscopy History of partial hysterectomy Social History Social History Household Members: Spouse Are you a primary care transitions manager to a significant other at home: No Do you presently have visiting nurse or other home services: No Alcohol intake: never Patient Tobacco Use Status: Never used Tobacco Have you been hit, kicked, punched, or otherwise hurt by someone within the past year? If so, by whom?: No Are you DNR?: No Advance Directives: No Advance Directives Information Provided: Yes Poor oral hygiene: No Meds Allergies Allergy/AdvReac Type Severity Reaction Status Date / Time penicillin G [PENICILLIN G] Allergy Intermediate UNKNOWN Verified 11/21/24 06:39 Home Medications ?Medication ?Instructions ?Recorded ?Confirmed ?Last Taken ?Type albuterol sulfate 90 mcg/actuation 1 inh inhalation QID 05/04/20 11/21/24 12/17/20 11:00 History aerosol inhaler bupropion HCl 150 mg 24 hr tablet, 150 mg PO QAM 05/04/20 11/21/24 Unknown History extended release cetirizine 10 mg tablet 10 mg PO DAILY 05/04/20 11/21/24 Unknown History estradiol 2 mg (7.5 mcg/24 hour) 1 vag ring vaginal [id number] 05/04/20 11/21/24 Unknown History vaginal ring (Estring) fluticasone propionate 50 1 spray intranasal DAILY 05/04/20 11/21/24 12/17/20 11:00 History mcg/actuation nasal spray,suspension (Allergy Relief (fluticasone)) methenamine hippurate 1 gram tablet 1 g PO BID 05/04/20 11/21/24 Unknown History ketotifen fumarate 0.025 % (0.035 1 drp ophthalmic (eye) DAILY PRN 11/18/21 11/21/24 Unknown History %) eye drops eye drops cholecalciferol (vitamin D3) 50 50 mcg PO DAILY 06/10/22 11/21/24 Unknown History mcg (2,000 unit) tablet sertraline 50 mg tablet 50 mg PO DAILY 06/10/22 11/21/24 Unknown History simvastatin 20 mg tablet 20 mg PO DAILY 06/10/22 11/21/24 Unknown History betamethasone dipropionate 0.05 % appl topical 06/21/24 Unknown History topical cream dupilumab 300 mg/2 mL subcutaneous mg subcut 06/21/24 Unknown History pen injector (Dupixent) levothyroxine 75 mcg tablet 75 mcg PO QAM 06/21/24 11/21/24 Unknown History loratadine 10 mg tablet 10 mg PO DAILY 06/21/24 11/21/24 Unknown History Exam Airway Mallampati Class: II TM Dist: <=3cm Neck ROM: Full Loose/Missing/Broken Teeth: No Heart: ok Lungs: ok Assessment and Plan Assessment Anesthesia Assessment: Anesthesia Plan Discussed Final Anesthetic Review NPO: Yes ASA Class: III Final Preanesthetic Review: No Changes in Pt Med Stat, Meds/Allgs Chart Reviewed, Consent Obtained/Reviewed and Anes Risks/Benef Reviewed Patient Risk: Intermediate Procedure Risk: Intermediate Anesthetic Plan Anesthetic Plan: Agree w/ Assess. and Plan and TIVA Disposition: Standard PACU
[2024-11-21 06:31] VITALS: BMI 32.9
[2024-11-21] MEDS: Lactated Ringers 1,000 ML 100 ML IVCONT (06:32)
--- NOTE | 2024-11-21 06:50 | MHC.SHP ---
Pre-Procedural Eval Section A - 24 Hr Update-Section A only Date of Service: 11/21/24 Section B - Complete if H&P > 30 days Chief Complaint: gerd,screening Relevant Family History (Specify if Yes): No Relevant Social History: None Present Medications: see Short Stay Collaborative assessment Medical History: Significant History (Allergic rhinitis COVID-19 vaccine administered GERD (gastroesophageal reflux disease) Arthritis Back pain Elevated alkaline phosphatase level Dyslipidemia Asthma Polymyalgia rheumatica Depression Osteopenia Hyperparathyroidism) History of Previous Operations: Relevant previous surgery/procedure and date(s) (Hx of hemorrhoidectomy Hx of melanoma excision Hx of esophagogastroduodenoscopy Hx of colonoscopy History of partial hysterectomy) Allergies: Allergies Allergy/AdvReac Type Severity Reaction Status Date / Time penicillin G [PENICILLIN G] Allergy Intermediate UNKNOWN Verified 11/21/24 06:39 Review of Systems Sugical H&P ROS: Negative: Constitution, Cardiovascular, Respiratory, Neurological, Psychiatric, Hem-Onc, Allergic/Immunologic, Gastrointestinal, Genitourinary, Musculoskeletal, Integumentary, Endocrine and Eyes/Ears/Nose/Throat Exam Surgical H&P Exam: Normal: HEENT, Normal: Heart, Normal: Lungs, Normal: Extremities, Normal: Abdomen, Normal: Skin and Normal: Neurological Plan Diagnosis/Plan: Unchanged I have reviewed the history and physical and performed a pertinent physical examination on my patient. No changes have occurred unless specified. Time Spent With Patient Time: Total time managing care of this patient today ____ minutes.
[2024-11-21 06:51] VITALS: BP 119/59; PULSE 64; RESP 18; TEMP 36.7; O2SAT 95
--- NOTE | 2024-11-21 08:15 | P.OPN-COLO_ITS ---
Colonoscopy Operative Note Operative Note Date of Service: 11/21/24 Narrative: Operative Information Procedure Description: EGD, Colonoscopy Indication: GERD, dysphagia and screening Anesthesia: MAC FLEXIBLE TRANSORAL UPPER GASTROINTESTINAL ENDOSCOPY AND COLONOSCOPY PROCEDURE NOTE UPPER ENDOSCOPY Consent: Indications for the procedure and potential complications of bleeding, perforation, reaction to medications and missed diagnosis were discussed with the patient and informed consent was obtained. Instrument: Olympus GIF H 190 J mid size upper endoscope Monitoring: Vital signs and clinical assessment, continuous EKG monitoring, Pulse oximetry, Carbon Dioxide monitoring and blood pressure monitoring were done throughout the procedure. Procedure: The patient was placed in the left lateral decubitis position and pre-procedure medications were administered and a bite block was placed. The endoscope was inserted into the mouth and advanced under direct vision to the third part of duodenum. A careful inspection was made as the upper endoscope was withdrawn including a retroflexed examination of the proximal stomach; Findings and interventions are described below. Findings: Larynx:normal Esophagus: GE junction at 38 cm, diaphragm hiatus at 38 cm, slight esophagitis and irregular Z line with possible short segment barretts, bx taken from here and distal esophagus. Balloon dilation to 20 mm at LES and UES, no tears seen Stomach: Mild erythema. Biopsies were obtained. Grade 2 flap valve on retroflexed examination of the cardia. Duodenum: Normal bulb and descending duodenum, Intervention: Biopsies as noted above, balloon dilation COLONOSCOPY Instrument: Olympus variable stiffness pediatric scope 190L Colonoscopy Monitoring: Vital signs and clinical assessment, continuous EKG monitoring, Pulse oximetry, Carbon Dioxide monitoring and blood pressure monitoring were done throughout the procedure. Colon withdrawal time was 11 minutes. Procedure: The patient was placed in the left lateral decubitis position and pre-procedure medications were administered. After a digital rectal examination of the ano-rectum, the video colonoscope was inserted into the rectum and advanced through the colon to the cecum/TI. The colonoscope was slowly withdrawn in a retrograde panoramic fashion and the colon mucosa was carefully examined including a retroflexed view of the rectum. Findings and interventions are described below. Procedure Difficulty:moderate Findings: Terminal Ileum-normal Cecum: x 1 sessile polyp 4-6 mm removed with cold forceps Ascending Colon: x 1 sessile polyp 4-6 mm removed with cold forceps Transverse Colon -normal Descending Colon:normal Sigmoid Colon: normal Rectum: Retroflexion with small internal hemorrhoids, grade I, x 2 sessile polyp 4-6 mm removed with cold forceps Anorectum - normal Colon preparation: [place] Bowel Preparation Scale Right colon; 2 Transverse colon: 2 Left colon; 2 (0 = Unprepared colon segment with mucosa not seen due to solid stool that c annot be cleared. 1 = Portion of mucosa of the colon segment seen, but other areas of the colon segment not well seen due to staining, residual stool and/or opaque liquid. 2 = Minor amount of residual staining, small fragments of stool and/or opaque liquid, but mucosa of colon segment seen well. 3 = Entire mucosa of colon segment seen well with no residual staining, small fragments of stool or opaque liquid) Impression and Post Procedure Diagnosis: Endoscopy Findings: possible barretts esophagitis Colonoscopy Findings: colon polyps x 4 internal hemorrhoids Plan: Await Pathology results Repeat Colonoscopy in 4-5 years if adenomatous polyp, 10 yrs if non adenomatous/non pre cancerous or earlier if clinically indicated High fiber diet leaflet avoid straining at stool, epsom salts and sitz bath, anusol supps or cream GERD precautions Above findings were reviewed with the patient and relevant handouts were provided if indicated.
[2024-11-21 08:20] VITALS: BP 100/54; PULSE 59; RESP 18; TEMP 36.2; O2SAT 95
[2024-11-21 08:41] VITALS: BP 127/45; PULSE 52; RESP 18; TEMP 36.2; O2SAT 98
[2024-11-21 08:42] VITALS: BP 127/45; PULSE 52; RESP 18; TEMP 36.2; O2SAT 98
== END 2024-11-21 09:22 | disposition home or self-care (01) ==
PROVIDERS: PCP Internal Medicine; Visit Provider Internal Medicine Gastroenterology
PROC: (CPT 43249; principal; 2024-11-21 07:30)
DX: Z12.11 Encounter for screening for malignant neoplasm of colon (principal); K63.5 Polyp of colon; K62.1 Rectal polyp; K64.0 First degree hemorrhoids; Z86.0101 Personal history of adenomatous and serrated colon polyps; K22.4 Dyskinesia of esophagus; K20.90 Esophagitis, unspecified without bleeding; K29.70 Gastritis, unspecified, without bleeding; K22.9 Disease of esophagus, unspecified; K21.9 Gastro-esophageal reflux disease without esophagitis; R13.10 Dysphagia, unspecified; E21.3 Hyperparathyroidism, unspecified; J45.909 Unspecified asthma, uncomplicated; E78.5 Hyperlipidemia, unspecified; R68.81 Early satiety; K74.3 Primary biliary cirrhosis; Z79.899 Other long term (current) drug therapy
CPT/HCPCS: 43249; 43239; 45380; 88305; 88313; 88342; C1726; J2003; J2704; J3010

== ENCOUNTER → 2024-11-21 05:55 | Outpatient (BNV) | payer MEDICAID, SELFPAY | PROVIDERS: PCP Internal Medicine; Visit Provider Internal Medicine Gastroenterology | DX: Z12.11 Encounter for screening for malignant neoplasm of colon (principal); D12.0 Benign neoplasm of cecum; D12.2 Benign neoplasm of ascending colon; D12.8 Benign neoplasm of rectum; K64.0 First degree hemorrhoids; K21.00 Gastro-esophageal reflux disease with esophagitis, without bleeding; R13.10 Dysphagia, unspecified | CPT/HCPCS: 43249; 45380 ==

== ENCOUNTER 2024-12-02 14:33 | Outpatient (AMB) | payer MEDICAID, SELFPAY ==
--- NOTE | 2024-12-02 14:34 | MHC.OFFVIS ---
Intake Visit Reasons: S/P colo, EGD Intake Note: Antoinette presents as a telehealth to go over results for the EGD and COLO CC: still having issues with swallowing when she eats or drinks. She states it is not as bad as it was but still some discomfort. Insurance Claims Assistant Required: No Allergies penicillin G [PENICILLIN G] Allergy (Intermediate, Verified 11/21/24 06:39) UNKNOWN HPI HPI S/P colo, EGD: Details: 64 yr old f w hx of PMR, HLP, depression, hyperparathyroidism, asthma and hypogammaglobulinemia being called for f/u for abn LFT RECAP: SHe had c/o epigastric heaviness, food sticks in stomach with vomiting of food up 1 hr later she also had reflux, keeps coming up, with some help with pantoprazole, used to be more effective in the past had constipation all her life she had egd and colon with [facility] 5 yrs ago for hx of polyps and reflux (colonoscopy q 5yrs), she denied alcohol intake except social no herbs no NSAID< tylenol for pain prn, never exceeds doses she does get swollen joints, stiffness no skin rashes + mouth sores no IV drug use or tattoos does say LFT first noted to be abn 1 yr ago, no new meds at that time LABS: raised GGT, AST, ALT< bili nml, alk phosp-- macro form noted (can be seen in any liver inflammation, malignancy) celiac serology--negative AMA pos--LFT had came down with ursodiol FH--pos for RA, no FH of liver disease US liver and elastography--borderline, increased echotexture she had EGD--12/17/20 with possible barretts and gastritis, rept US 07/2021 --elastography improved to 1.7, otherwise unremarkable US EGD/Ariton: 11/17 Endoscopy Findings: possible barretts esophagitis Colonoscopy Findings: colon polyps x 4 internal hemorrhoids PATH: benign polyps, mild inflamamtion at GEJ INTERIM: she has noted badly controlled reflux hardeep at night appetite is good weight is stable compliant with the ursodiol she feels dilation did not help A/P; 1/ Suspected PBC 2/ worse GERD PLAN: 1/ change to esomeprazole 40 mg bid and titrate down after about 3-4 months 2/ if ongoing sx then manometry 3/ get LFT from PCP, if high re eval liver PFSH Medical History Allergic rhinitis COVID-19 vaccine administered GERD (gastroesophageal reflux disease) Arthritis Back pain Elevated alkaline phosphatase level Dyslipidemia Asthma Polymyalgia rheumatica Depression Osteopenia Hyperparathyroidism Surgical History Hx of hemorrhoidectomy Hx of melanoma excision Hx of esophagogastroduodenoscopy Hx of colonoscopy History of partial hysterectomy Family History Father Diabetes Mother No problems noted. Social History Household Members: Spouse Are you a primary field care manager to a significant other at home: No Do you presently have visiting nurse or other home services: No Alcohol intake: never Patient Tobacco Use Status: Never used Tobacco Telehealth Telehealth Telehealth Platform: Telephone Location of provider rendering services: practice address Location of patient: address on file Patient Identification confirmed using: Name, : Yes Telehealth method: voice only Patient verbally consented to treatment: Yes Patient verbally consented to billing insurance company: Yes Patient informed of any privacy concerns related to visit: Yes Minutes spent on Phone/Video with Pt.: 7 Assessment & Plan Assessment & Plan (1) Primary biliary cholangitis: Code(s): K74.3 - Primary biliary cirrhosis Category: Medical Plan: as above Medications: New esomeprazole magnesium 40 mg PO DAILY 60 caps 2RF Discontinued pantoprazole Discontinued Reason: Doctor's Order 20 mg PO BID 90 days 180 tabs 3RF Coding Level of Care Code Tele Est Pt Level 3 (05410) Diagnoses Primary biliary cholangitis K74.3
--- OUTSIDE RECORDS SUMMARY | 2024-12-02 16:24 | XMS_ITS | Data Portability ---
Author Organization [place] - [facility], Allergy Address [address] [address] Care Team Providers Care Dining Service Supervisor Name Role Phone JESUS LING Primary Care Provider JESUS LING Referring Provider Assessment Encounter Date Assessment Date Assessment LastModified by Organization Details LastModified Time 11/20/2024 11/20/2024 64yo female presents for evaluation of hearing and intermittent periauricular discomfort. Physical exam reveals no identifiable source of otalgia involving the auricle, external auditory canal, or tympanic membrane. Audiometry demonstrated normal sloping to moderate SNHL with excellent word recognition. Patient is borderline a candidate for amplification, and prefers to observe. The patient's auricular discomfort is most likely consistent with intermittent inflammation of the jaw joint or spasm of the surrounding musculature. I recommended the patient use light massage, warm compresses and anti-inflammator ies for symptomatic management. Stressed chewing evenly on both sides of the mouth to keep from overworking the jaw joint. Use soft food diet as needed. Recommend considering medical-grade mouth guard through their dentist if symptoms persist despite supportive management. Patient will return for audiometric testing in one year. [email or web address] Not available 11/20/2024 13:53:57 Plan of Treatment Reminders Order Date Submit Date Provider Last Modified By Organization Details Last Modified Time Details Appointments Hearing Test 2025 10:30A M Hearing Test Not available Not available Not available Establish ed 15 2025 11:00A M ARGENTINA METCALF PA-C Not available Not available Not available Lab None recorded. Referral None recorded. Procedures None recorded. Surgeries None recorded. Imaging None recorded. Medication Orders None recorded. Patient TargetsNo targets recorded. Patient InstructionsNo instructions recorded. Reason for Referral None Reported. Results Created Date Observation Date Name Description Value Unit Range Abnormal Flag Note LastModifiedBy Organization Detail LastModifiedTime 11/21/19 25 audio gram No observ ation record ed. BARCODE Not Available 2024 15:43:01 Result Notes None recorded. Problems Name Problem SNOMED Code Status Onset Date Resolution Date Notes Provider Name and Address Organization Details Recorded Time Sensorineur al hearing loss of bilateral ears 282755801 Active 2024 SWATHI PERRY, AUD [address] [facility] [place], [place], [address], [facility] 13:00:13 Bilateral referred otalgia of ears [id number] 106 Active 2024 ARGENTINA METCALF PA-C 100 [facility],[address] [facility], [place], [address], [facility] 13:32:49 Tinnitus of left ear 6137000699410 Active 2024 ARGENTINA METCALF PA-C 100 [facility],[address], [place], [address], [facility] 13:54:06 Problem Notes None recorded. Procedures Surgical History Date Name Laterality Status Provider Name and Address Organization Details Recorded Time 11/20/2024 Comp Audio with Tymps - 08015 & 70798 completed SWATHI PERRY, AUD 100 [facility],[address], [address], [facility] 11/20/2024 13:00:08 Imaging Results None recorded. Procedure Notes None recorded. Medical Equipment None Reported. Allergies Allergen ID Allergen Name Allergen Category Reaction Reaction Severity Criticality Documentation Date Start Date Code Code System Note Provider Name and Address Organization Details Recorded Time 930134 Product containin g penicilli n (product) medicatio n Not available Not available Not available 11/20/2024 80834 8001 SNOMED Cynthia lindsey [facility] 13:15:38 Medications Name Sig Start Date Stop Date Status Note LastModified by Organization Details LastModified Time ivermectin 3 mg tablet TAKE 5 TABLETS BY MOUTH TODAY AND THAN TAKE 5 AGAIN NEXT WEEK active Not Available Not Available No t Available Estring 2 mg (7.5 mcg/24 hour) vaginal ring INSERT 1 RING VAGINALLY EVERY 3 MONTHS active Not Available Not Available No t Available cetirizine 10 mg tablet TAKE 2 TABLETS BY MOUTH DAILY active Not Available Not Available No t Available benzonatate 200 mg capsule TAKE 1 CAPSULE BY MOUTH AT BEDTIME FOR 10 DAYS NEEDED 11/20 completed Not Available Not Available Not Available ketotifen 0.025 % (0.035 %) eye drops APPLY 1 DROP BOTH EYES TWICE DAILY NEEDED active Not Available Not Available No t Available valacyclovi r 1 gram tablet TAKE 2 TABLETS BY MOUTH TWICE DAILY FOR 1 DAY active Not Available Not Available No t Available prednisone 20 mg tablet TAKE 2 TABLETS BY MOUTH DAILY FOR 5 DAYS 11/20 completed Not Available Not Available Not Available betamethaso ne, augmented 0.05 % topical cream APPLY TOPICALLY TO THE AFFECTED AREA ON TRUNK AND ARMS TWICE DAILY NEEDED - DECREASE USE SYMPTOMS IMPROVE active Not Available Not Available No t Available valacyclovi r 500 mg tablet TAKE 1 TABLET BY MOUTH DAILY active Not Available Not Available No t Available ciprofloxac in 500 mg tablet TAKE 1 TABLET BY MOUTH EVERY 12 HOURS FOR 5 DAYS 11/20 completed Not Available Not Available Not Available triamcinolo ne acetonide 0.1 % topical cream active Not Available Not Available Not Available Fluocinonid e-E 0.05 % topical cream APPLY TOPICALLY TO AFFECTED AREAS ON TRUNK AND ARMS TWICE DAILY NEEDED - DECREASE TO ONCE EVERY DAY / EVERY OTHER DAY SYMPTOMS IMPROVE active Not Available Not Available No t Available pantoprazol e 20 mg tablet,kalyan yed release TAKE 1 TABLET BY MOUTH DAILY active Not Available Not Available No t Available levothyroxi ne 75 mcg tablet TAKE 1 TABLET BY MOUTH DAILY IN THE MORNING ON AN EMPTY STOMACH active Not Available Not Available No t Available methenamine hippurate 1 gram tablet TAKE 1 TABLET BY MOUTH TWICE DAILY active Not Available Not Available No t Available doxycycline monohydrate 100 mg capsule TAKE ONE CAPSULE BY MOUTH TWICE DAILY WITH A MEAL AND A GLASS OF WATER - WEAR SUNSCREEN WHILE TAKING THIS MEDICATIO N 11/20 completed Not Available Not Available Not Available levothyroxi ne 50 mcg tablet TAKE 1 TABLET BY MOUTH DAILY IN THE MORNING ON AN EMPTY STOMACH active Not Available Not Available No t Available simvastatin 20 mg tablet TAKE 1 TABLET BY MOUTH DAILY IN THE EVENING active Not Available Not Available No t Available tacrolimus 0.1 % topical ointment active Not Available Not Available Not Available betamethaso ne dipropionat e 0.05 % topical cream active Not Available Not Available Not Available azelastine 137 mcg (0.1 %) nasal spray PLACE 1 SPRAY IN EACH NOSTRIL TWICE A DAY active Not Available Not Available No t Available fluticasone propionate 50 mcg/actuati on nasal spray,suspe nsion SHAKE LIQUID AND USE 1 SPRAY IN EACH NOSTRIL ONCE A DAY active Not Available Not Available No t Available sertraline 50 mg tablet TAKE 1 AND 1/2 TABLETS BY MOUTH DAILY active Not Available Not Available No t Available doxycycline hyclate 100 mg tablet TAKE 1 TABLET BY MOUTH TWICE DAILY FOR 7 DAYS 11/20 completed Not Available Not Available Not Available loratadine 10 mg tablet TAKE 1 TABLET BY MOUTH DAILY active Not Available Not Available No t Available Ventolin HFA 90 mcg/actuati on aerosol inhaler INHALE 1 PUFF INTO THE LUNGS EVERY 4 HOURS NEEDED active Not Available Not Available No t Available ursodiol 500 mg tablet TAKE 1 TABLET BY MOUTH TWICE DAILY active Not Available Not Available No t Available cholecalcif debora (vitamin D3) 50 mcg (2,000 unit) tablet TAKE 1 TABLET BY MOUTH EVERY DAY active Not Available Not Available No t Available Suprep Bowel Prep Kit 17.5 gram-3.13 gram-1.6 gram oral solution DRINK 1/2 AT 6 - 8 PM AND HALF AT 11PM - 1AM active Not Available Not Available No t Available Dupixent 300 mg/2 mL subcutaneou s pen injector active Not Available Not Available Not Available Vitals Date Recorded Body height Body mass index (BMI) Body weight Provider Name and Address Organization Details Last Updated DateTime 11/20/2024 154.94 cm 33.1 kg/m2 26128.66 g Cynthia Burnett [place] [facility] 11/20/2024 13:15:34 Social History Question Answer Notes LastModified by Organizat ion Details LastModified Time Tobacco Smoking Status Never Smoker Cynthia lindsey [place] - [facility] 11/20/2024 13:15:47 What Type Of Visual Merchandise Manager Do You Use? None Information not available 11/20/2024 Do You Have Any Pets? Yes Information not available 11/20/2024 Are You Passively Exposed To Smoke? No Information not available 11/20/2024 Are There Any Smokers In Your House? No Information not available 11/20/2024 Sex: Unknown Functional Status Question Answer Note LastModified by Organization Details LastModified Time Do you use any illicit or recreational drugs? No Information not available 11/20/2024 Do you or have you ever used any other forms of tobacco or nicotine? No Information not available 11/20/2024 What is your level of alcohol consumption? 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 noExposureToExcessiveNoise Infor mation not available 11/20/2024 Mental Status None recorded. Family History Nothing Reported. Medical History Condition Response Allergies/Hayfever Y Hearing Loss Y Asthma Y Gynecological HistoryNo gynecological history recorded. Obstetrics History GPAL:G 0 P 0 0 0 0 Past Encounters Encounter ID Performer Location Encounter Start Date Encounter Closed Date Diagnosis/Indication Diagnosis SNOMED-CT Code Diagnosis ICD10 Code Diagnosis Note [id number] ARGENTINA METCALF PA-C [facility] [address] [address] 11/20/2024 12:45:56 11/20/2024 13:34:51 Sensorineural hearing loss of bilateral ears 613188915 H90.3 Audiologic al evaluation results: Normal sloping to moderate sensorineu ral hearing loss with excellent word recognitio n, bilaterall y. Tympanomet ry: Right Ear:Type A Left Ear:Type A Bilateral referred otalgia of ears 5967494769 392223 H92.03 Tinnitus of left ear 736 7819100 106 H93.12 Health Concerns Section Related Observation LastModified by Organization Detai ls LastModified Time None Recorded Concern Status LastModified by Organization Details LastModified Time None Recorded Advance Directives Directive None Recorded Payers Insurance Date Sequence Insurance Name Policy Number Policy Reyes Covered Member ID Reyes Member ID Guarantor Name 11/20/2024 1 [place]ICAID-[place]: [facility] Antoinette Ware [id number] Antoinette Ware Notes Date Note Type Note Provider Name and Address Organization Details Recorded Time 11/20/2024 text/html 64yo female presents for evaluation of the ears. She reports occasional hearing difficulties. reports she says what frequently. Endorses intermittent left-sided buzzing tinnitus. Intermittent sharp pain around the ears a couple times weekly. No history of bruxism. Denies dizziness. Denies recent ear infections. No prior ear surgeries. No history of loud noise exposure. History of seasonal allergies, asthma, and eczema on dupixent. She is pre-diabetic. ARGENTINA METCALF PA-C [address] [place] [address], [phone], [facility] - [facility] 11/20/2024 13:54:26 OBGyn Episode No OBEpisode recorded.
== END 2024-12-02 15:45 | disposition home or self-care (01) ==
LOC: HO.HGI 14:33
PROVIDERS: PCP Internal Medicine; Visit Provider Internal Medicine Gastroenterology
DX: K74.3 Primary biliary cirrhosis (principal)
CPT/HCPCS: 99213

== ENCOUNTER → 2024-12-02 14:33 | Outpatient (BNVA) | payer MEDICAID, SELFPAY | PROVIDERS: PCP Internal Medicine; Visit Provider Internal Medicine Gastroenterology ==